=== PATIENT | female | born 1955 | race Caucasian/White ===

== ENCOUNTER 2016-04-16 11:02 | Emergency (ER) | payer OTHER ==
[~2016-04-16] VITALS: Ht 154.9 cm; Wt 94.1 kg
[~2016-04-16 11:02] MED LIST: ACETAMINOPHEN-1 EAC4 PO; ACIPHEX20 MG PO; ACTOS15 MG PO; ADULT LOW DOSE81 M1 PO; ADVAIR 250/501 DISK IH; ALBUTEROL; ALBUTEROL SULF8.5 GM IH; ALBUTEROL17 GM IH; ALL DAY ALLERGY10 M3 PO; AMITRIPTYLINE H25 MG PO; AMLODIPINE BESYL5 MG PO; AMOX TR-K CLV1 EAC4 PO; ASPERDRINK81 MG PO; ASPIR 8181 M1 PO; ASPIR-LOW81 MG PO; ATARAX,VISTARIL25 MG PO; ATENOLOL25 M1 PO; ATORVASTATIN CA20 MG PO; ATROVENT 00.5 MG/2.5 IH; ATROVENT H200 INHALA IH; AUGMENTIN875 MG PO; AVELOX400 MG PO; AZITHROMYCIN250 MG PO; AZITHROMYCIN250 MG1 PO; Antivert PO; Aspirin E.C. PO; Atrovent HFA Inhaler IH; BACTRIM,SEPT1 TABLET PO; BACTROBAN OINTM22 GM TP; BENTYL10 MG PO; BENTYL20 MG PO; BENZONATATE100 MG PO; BENZONATATE200 MG PO; BROMIDE; BUDEPRION SR150 MG PO; BUPROPION HCL150 M2 PO; CALCIUM + D 601 EACH PO; CALCIUM 600 +1 EACH PO; CALCIUM PO; CARAFATE100 MG/ML PO; CARDIZEM CD,CA120 MG PO; CARDIZEM CD,CA240 M1 PO; CARDIZEM CD,CA240 MG PO; CARTIA XT120 MG PO; CARTIA XT240 MG PO; CELEXA20 MG PO; CITALOPRAM HBR20 MG PO; CLEOCIN300 MG PO; CLINDAMYCIN HC300 MG PO; CLONAZEPAM0.5 M1 PO; CLONAZEPAM0.5 MG PO; CLONIDINE HCL0.1 MG PO; COL-RITE100 M1 PO; COLACE100 MG PO; COMBIVENT200 INHALA IH; CORTIZONE-10 PL57 GM TP; COUMADIN5 MG PO; COZAAR100 MG PO; CYANOCOBALAM1000 MCG PO; CYMBALTA30 MG PO; CYMBALTA60 MG PO; Cardizem CD,Cartia X PO; Cardizem CD,Cartia XT,Tiazac PO; Colace PO; Cymbalta PO; DELTASONE10 MG PO; DEXILANT60 MG PO; DIABETA5 MG PO; DILT-CD120 MG PO; DILTIAZEM 24HR240 MG PO; DIOVAN HCT 31 TABLE1 PO; DIOVAN320 MG PO; DOXEPIN HCL10 MG PO; DOXYCYCLINE HY100 MG PO; DUONEB 2.5-0.5 M3 ML AEROSOL; DUONEB 2.5-0.5 M3 ML IH; DUONEB3 ML IH; DYAZIDE, MA1 CAPSULE PO; Dulcolax PR; Dulera 200 mcg/5 mcg IH; DuoNeb IH; ENDOCET 7.5-321 EACH PO; Effexor XR PO; Elavil PO; FIORICET 50-301 EACH PO; FLEXERIL10 MG PO; FLONASE16 G1 BOTH NARES; FLOVENT DISKUS1 DIS2 IH; FOSAMAX70 MG PO; FUROSEMIDE20 MG PO; Flexeril PO; Flonase BOTH NARES; Fosamax PO; GABAPENTIN300 MG PO; GABAPENTIN600 MG PO; GLIPIZIDE XL10 MG PO; GLIPIZIDE10 MG PO; GLUCAGEN1 MG IM/SC; GLUCOTROL XL10 MG PO; GLUCOTROL10 MG PO; GLYBURIDE5 MG PO; Glucotrol XL PO; HYCODAN SYRUP480 ML PO; HYDROCHLOROTHIA25 MG; HYDROCHLOROTHIA25 MG PO; Hydrodiuril,Oretic,E PO; INDERIDE 40/1 TABLET PO; INTAL IH; INVanz IV; IPRATR-ALBUTEROL3 ML IH; IPRATROPIU0.2 MG/1 M IH; JANUVIA100 MG; JANUVIA100 MG PO; JANUVIA25 MG PO; K-PHOS ORIGINA500 M1 PO; KEFLEX500 MG PO; KLONOPIN0.5 M1 PO; KlonoPIN PO; Klonopin PO; LANTUS 10100 UNITS/ SC; LANTUS 3 M100 UNITS/ SC; LANTUS 3 M100 UNITS1 SC; LASIX20 MG PO; LASIX40 MG PO; LEVAQUIN250 MG PO; LEVAQUIN750 MG PO; LEVEMIR FL100 UNIT/1 SC; LEVEMIR FL100 UNITS/ SC; LEVEMIR100 UNIT/2 SC; LIDOCAINE700 MG TD; LIDODERM 5% P1 PATCH TD; LISINOPRIL20 MG PO; LO-DOSE ASPIRIN81 M1 PO; LOPRESSOR25 MG PO; LOSARTAN POTAS100 MG PO; LOVENOX40 MG/0.4 SC; LOW DOSE ASPIRI81 M1 PO; LOW DOSE ASPIRI81 M2 PO; LYRICA50 MG PO; Lasix PO; Levaquin PO; MAGNESIUM OXID400 MG PO; MAGNESIUM PO; MEDROL DOSEPAK4 MG PO; METAXALONE800 MG PO; METFORMIN HCL500 M1 PO; METOCLOPRAMIDE H5 MG PO; MICROZIDE12.5 M1 PO; MIRALAX255 GM PO; MOBIC15 MG PO; MOBIC7.5 MG PO; MONTELUKAST SOD10 MG PO; MUSCLE RUB CREA85 GM TP; MYCOSTATIN5 ML PO; Miralax, Glycolax PO; NEURONTIN300 MG PO; NEURONTIN600 MG PO; NEXIUM40 MG PO; NITROSTAT0.4 MG SL; NORCO 5/3251 TABLET PO; NORTRIPTYLINE H25 MG PO; NORVASC5 MG PO; NOVOLOG 10100 UNITS/ SC; NOVOLOG PE100 UNITS/ SC; OMEPRAZOLE40 M1 PO; OXECTA5 MG PO; OXYCODONE HCL10 MG PO; OXYCODONE HCL15 MG PO; OXYCODONE HCL5 M1 PO; OXYCODONE HCL5 MG PO; OXYCODONE-APAP1 EACH PO; PATANASE30.5 GM BOTH NARES; PATANASE30.5 GM NS; PERCOCET 5/31 TABLET PO; PHENERGAN W/ COD1 ML PO; PHENERGAN12.5 M1 PO; PIOGLITAZONE HC15 MG PO; POTASSIUM PO; POTASSIUM-9999 MG PO; PRAVACHOL10 MG PO; PRAVACHOL80 MG PO; PRAVASTATIN SOD80 MG PO; PREDNISONE; PREDNISONE PO; PREDNISONE10 M2 PO; PREDNISONE10 MG; PREDNISONE10 MG PO; PREDNISONE20 MG PO; PREDNISONE5 M1 PO; PREDNISONE5 MG PO; PREDNISONE50 MG PO; PRILOSEC20 MG PO; PRILOSEC40 MG PO; PROAIR HFA8.5 GM IH; PROMETHAZINE HC50 M1 PO; PROTONIX40 MG PO; PROVENTIL HFA6.7 GM IH; PROVENTIL,2.5 MG/0.5 IH; PROVENTIL,2.5 MG/3 M IH; PROZAC20 M1 PO; PROZAC20 MG PO; PROZAC40 MG PO; Protonix PO; Proventil,Ventolin H IH; RANITIDINE HCL150 M1 PO; REQUIP XL4 MG PO; REQUIP2 MG PO; REQUIP4 MG PO; REQUIP5 MG PO; RESUME HOME MEDS; ROBITUSSIN AC,T10 ML PO; ROPINIROLE HCL4 MG PO; ROPINIROLE HCL5 MG PO; RYBIX ODT50 MG PO; Requip PO; Robitussin AC,Tussi- PO; SERTRALINE HCL25 MG PO; SINEQUAN10 MG PO; SINGULAIR10 MG PO; SKELAXIN800 MG PO; SPIRIVA RESPIMAT4 GM IH; SPIRIVA1 INHALATI IH; STOOL SOFTENER100 M1 PO; STOOL SOFTENER100 MG PO; SYMBICORT60 INHALA1 IH; SYMBICORT60 INHALAT IH; Singulair PO; Skelaxin PO; Symbicort 160-4.5 mc IH; Symbicort 80-4.5 mcg IH; TESSALON PERLE100 MG PO; TESSALON200 MG PO; THEO-DUR,THEOC200 MG PO; TOBRAMYCIN SULFA5 ML RIGHT EYE; TOPAMAX100 MG PO; TOPAMAX25 MG PO; TOPAMAX50 MG PO; TOPIRAMATE25 MG PO; TOPIRAMATE50 MG PO; TRAMADOL HCL50 MG PO; TRULICITY0.75 MG/0. SC; TYLENOL EXTRA500 MG PO; TYLENOL REGULA325 MG PO; Tenormin PO; Tessalon Perle PO; Topamax PO; ULTRAM50 MG PO; VALACYCLOVIR1000 MG; VENTOLIN HFA18 GM IH; VERAMYST10 GM BOTH NARES; VERAMYST10 GM NS; VIBRAMYCIN100 MG PO; VICODIN 5-3001 EACH PO; VITAMIN B PO; VITAMIN B-12250 MCG PO; WARFARIN SODIUM4 MG PO; WELLBUTRIN SR100 MG PO; WELLBUTRIN SR150 MG PO; WESTCORT15 G1 TP; XANAX0.5 MG PO; XARELTO15 MG PO; XARELTO20 MG PO; Xopenex IH; ZESTRIL,PRINIVI40 M1 PO; ZESTRIL40 M1 PO; ZITHROMAX Z-PA250 MG PO; ZOFRAN ODT4 MG PO; ZOFRAN ODT8 MG PO; ZOFRAN4 MG PO; ZYRTEC10 M1 PO; ZYRTEC10 M2 PO; ZYRTEC10 M3 PO; [UNRECOGNIZED DRUG - CODE]; [UNRECOGNIZED DRUG - CODE] IH; celeXA PO; oxyCODONE PO; predniSONE PO
[2016-04-16] MEDS ORDERED: TESSALON PERLE100 MG PO (14:35)
[2016-04-16] MEDS ORDERED: PREDNISONE20 MG PO (14:35)
[2016-04-16 14:44] VITALS: BP 120/86
== END 2016-04-16 14:50 | disposition home or self-care (01) ==
LOC: RME 11:02 → EME 11:02 → RME 14:50
DX: J40 Bronchitis, not specified as acute or chronic (principal); J44.9 Chronic obstructive pulmonary disease, unspecified; J43.9 Emphysema, unspecified; I10 Essential (primary) hypertension; E78.5 Hyperlipidemia, unspecified; E11.9 Type 2 diabetes mellitus without complications; M79.7 Fibromyalgia; I25.10 Atherosclerotic heart disease of native coronary artery without angina pectoris; Z79.4 Long term (current) use of insulin; Z87.891 Personal history of nicotine dependence; Z88.1 Allergy status to other antibiotic agents; Z88.6 Allergy status to analgesic agent; Z88.7 Allergy status to serum and vaccine; Z88.8 Allergy status to other drugs, medicaments and biological substances
CPT/HCPCS: 71020; 94640; 99281; 99284; J7512

== ENCOUNTER 2016-04-19 10:28 | Emergency (ER) | payer OTHER ==
[~2016-04-19] VITALS: Ht 154.9 cm; Wt 95.6 kg
[2016-04-19] MEDS ORDERED: AUGMENTIN875 MG PO (13:05)
[2016-04-19] MEDS ORDERED: ROBITUSSIN100 MG/5 M PO (13:05)
[2016-04-19] MEDS ORDERED: PREDNISONE10 MG PO (13:06)
[2016-04-19] MEDS ORDERED: DELTASONE20 M1 PO (13:07)
[2016-04-19] MEDS ORDERED: PREDNISONE50 MG PO (13:10)
[2016-04-19 14:05] VITALS: BP 164/91
== END 2016-04-19 14:07 | disposition home or self-care (01) ==
LOC: EME 10:28
DX: J44.0 Chronic obstructive pulmonary disease with (acute) lower respiratory infection (principal); J20.9 Acute bronchitis, unspecified; E11.9 Type 2 diabetes mellitus without complications; M79.7 Fibromyalgia; E78.5 Hyperlipidemia, unspecified; I10 Essential (primary) hypertension; K21.9 Gastro-esophageal reflux disease without esophagitis; I25.10 Atherosclerotic heart disease of native coronary artery without angina pectoris; G89.29 Other chronic pain; Z86.718 Personal history of other venous thrombosis and embolism; Z86.711 Personal history of pulmonary embolism; Z87.891 Personal history of nicotine dependence
CPT/HCPCS: 71020; 93005; 94640; 99281; 99284; J7512

== ENCOUNTER 2016-04-29 07:55 | Emergency (ER) | payer OTHER ==
[~2016-04-29] VITALS: Ht 154.9 cm; Wt 96.3 kg
[~2016-04-29 07:55] MED LIST changes: +DELTASONE20 M1 PO; +ROBITUSSIN100 MG/5 M PO
[2016-04-29 08:45] LABS: ADD MIUA? YES; BILIRUBIN NEGATIVE; BLOOD TRACE; COLOR YELLOW ((YELLOW)); GLUCOSE (STRIP) NEGATIVE; KETONES NEGATIVE; LEUKOCYTES SMALL; NITRITE NEGATIVE; PH, URINE 6.5 (5-8); PROTEIN (STRIP) NEGATIVE; SPECIFIC GRAVITY 1.016 (1.000-1.030); UROBILINOGEN 0.2 MG/DL (0.2-1.0)
[2016-04-29 09:03] LABS: BACTERIA NONE SEEN; CASTS NONE SEEN /LPF; CRYSTALS NONE SEEN; EPITHELIAL CELLS 1+; MUCUS NONE SEEN; UBAC NUMBER 794.5; UEPI NUMBER 23.8; URBC NUMBER 26.1; WHITE BLOOD CELLS 0-5 /HPF (0-5)
[2016-04-29 10:24] VITALS: BP 126/77
== END 2016-04-29 10:25 | disposition home or self-care (01) ==
LOC: EME 07:55 → EXP 07:55
PROVIDERS: Physician Assistant
DX: J20.9 Acute bronchitis, unspecified (principal); R19.7 Diarrhea, unspecified; J45.909 Unspecified asthma, uncomplicated; J44.9 Chronic obstructive pulmonary disease, unspecified; K21.9 Gastro-esophageal reflux disease without esophagitis; E78.5 Hyperlipidemia, unspecified; I10 Essential (primary) hypertension; M79.7 Fibromyalgia; Z86.73 Personal history of transient ischemic attack (TIA), and cerebral infarction without residual deficits; Z96.652 Presence of left artificial knee joint; Z86.711 Personal history of pulmonary embolism; Z86.718 Personal history of other venous thrombosis and embolism; Z79.891 Long term (current) use of opiate analgesic; Z87.891 Personal history of nicotine dependence
CPT/HCPCS: 81003; 94640; 99281; 99284; J1100

== ENCOUNTER 2016-05-10 16:06 | Emergency (ER) | payer OTHER ==
[~2016-05-10] VITALS: Ht 152.4 cm; Wt 98.0 kg
[2016-05-10 16:45] LABS: ADD MIUA? NO; BILIRUBIN NEGATIVE; BLOOD NEGATIVE; COLOR YELLOW ((YELLOW)); GLUCOSE (STRIP) NEGATIVE; KETONES NEGATIVE; LEUKOCYTES NEGATIVE; NITRITE NEGATIVE; PH, URINE 6.5 (5-8); PROTEIN (STRIP) NEGATIVE; SPECIFIC GRAVITY 1.022 (1.000-1.030); UCUL ADDED? NO; UROBILINOGEN 0.2 MG/DL (0.2-1.0)
[2016-05-10 17:09] LABS: MCH 27.9 PG (29.0-34.0); MCHC 33.7 G/DL (30.0-36.0); MCV 82.8 FL (83-99); MEAN PLAT.VOLUME 10.2 uM^3 (9.5-12.4); PLATELET COUNT 234 K/uL (156-360); RBC DIS.WIDTH-CV 14.1 % (11.8-14.6); RBC DIS.WIDTH-SD 41.8 % (39-53); RED BLOOD COUNT 4.95 M/uL (3.80-5.20); WHITE BLOOD COUNT 6.9 K/uL (4.1-10.2)
[2016-05-10 17:18] LABS: CHLORIDE 104 mEq/L (99-109); POTASSIUM 4.5 mEq/L (3.7-5.4); SODIUM 141 mEq/L (136-147)
[2016-05-10 17:20] LABS: GLUCOSE 114 mg/dL (70-99)
[2016-05-10 17:21] LABS: ANION GAP 12 MEQ/L (2-14)
[2016-05-10 17:22] LABS: TOTAL BILIRUBIN 0.5 mg/dL (0.0-1.0)
[2016-05-10 17:23] LABS: ALKALINE PHOSPHATASE 122 IU/L (3-129)
[2016-05-10 17:24] LABS: GFR ESTIMATE (CALCULATED) > 59 mL/min/
[2016-05-10 17:25] LABS: UREA NITROGEN (BUN) 15 mg/dL (9-23)
[2016-05-10] MEDS ORDERED: LIDODERM 5% P1 PATCH TD (17:30)
[2016-05-10 18:11] VITALS: BP 148/83
== END 2016-05-10 18:12 | disposition home or self-care (01) ==
LOC: RME 16:06 → EME 16:06 → RME 18:12
DX: S39.012A Strain of muscle, fascia and tendon of lower back, initial encounter (principal); E11.9 Type 2 diabetes mellitus without complications; E78.5 Hyperlipidemia, unspecified; I10 Essential (primary) hypertension; Z86.73 Personal history of transient ischemic attack (TIA), and cerebral infarction without residual deficits; Z86.718 Personal history of other venous thrombosis and embolism; Z96.652 Presence of left artificial knee joint; Z88.1 Allergy status to other antibiotic agents; Z88.6 Allergy status to analgesic agent; Z88.7 Allergy status to serum and vaccine
CPT/HCPCS: 80053; 81003; 85027; 99281; 99284

== ENCOUNTER 2016-05-22 11:05 | Emergency (ER) | payer OTHER ==
[~2016-05-22] VITALS: Ht 154.9 cm; Wt 96.1 kg
[2016-05-22 11:46] LABS: HEMATOCRIT 43.5 % (36.0-46.0); MCH 27.8 PG (29.0-34.0); MCV 81.6 FL (83-99); MEAN PLAT.VOLUME 9.9 uM^3 (9.5-12.4); PLATELET COUNT 250 K/uL (156-360); RBC DIS.WIDTH-CV 14.5 % (11.8-14.6); RBC DIS.WIDTH-SD 42.7 % (39-53); RED BLOOD COUNT 5.33 M/uL (3.80-5.20); WHITE BLOOD COUNT 5.3 K/uL (4.1-10.2)
[2016-05-22 12:00] LABS: CHLORIDE 109 mEq/L (99-109); POTASSIUM 3.7 mEq/L (3.7-5.4); SODIUM 143 mEq/L (136-147)
[2016-05-22 12:02] LABS: GLUCOSE 165 mg/dL (70-99)
[2016-05-22 12:04] LABS: ANION GAP 11 MEQ/L (2-14); TOTAL BILIRUBIN 0.3 mg/dL (0.0-1.0)
[2016-05-22 12:06] LABS: ALKALINE PHOSPHATASE 138 IU/L (3-129); GFR ESTIMATE (CALCULATED) 54 mL/min/
[2016-05-22 12:07] LABS: UREA NITROGEN (BUN) 14 mg/dL (9-23)
[2016-05-22 13:43] LABS: ADD MIUA? YES; BILIRUBIN SMALL; BLOOD NEGATIVE; COLOR AMBER ((YELLOW)); GLUCOSE (STRIP) NEGATIVE; KETONES 5; LEUKOCYTES TRACE; NITRITE NEGATIVE; PROTEIN (STRIP) 100; SPECIFIC GRAVITY 1.038 (1.000-1.030); UROBILINOGEN 0.2 MG/DL (0.2-1.0)
[2016-05-22 13:44] LABS: BACTERIA NONE SEEN /HPF; CRYSTALS PRESENT; EPITHELIAL CELLS NONE SEEN /HPF; MUCUS NONE SEEN /LPF; RED BLOOD CELLS NONE SEEN /HPF (0-5); UCUL ADDED? NO; WHITE BLOOD CELLS NONE SEEN /HPF (0-5)
[2016-05-22 13:49] LABS: CALCIUM OXALATE CRYSTALS 4+ /HPF
[2016-05-22 13:50] LABS: CASTS PRESENT /LPF; HYALINE CASTS 0-5 /LPF
[2016-05-22 14:15] LABS: INFLUENZA A VIRAL ANTIGEN NEGATIVE; INFLUENZA B VIRAL ANTIGEN NEGATIVE
[2016-05-22 16:15] VITALS: BP 170/106
== END 2016-05-22 16:16 | disposition home or self-care (01) ==
LOC: EME 11:05
PROVIDERS: Physician Assistant
DX: R11.2 Nausea with vomiting, unspecified (principal); R19.7 Diarrhea, unspecified; E11.9 Type 2 diabetes mellitus without complications; J44.9 Chronic obstructive pulmonary disease, unspecified; E78.5 Hyperlipidemia, unspecified; I10 Essential (primary) hypertension; K21.9 Gastro-esophageal reflux disease without esophagitis; Z86.73 Personal history of transient ischemic attack (TIA), and cerebral infarction without residual deficits; Z86.718 Personal history of other venous thrombosis and embolism; Z86.711 Personal history of pulmonary embolism; G89.29 Other chronic pain; Z79.891 Long term (current) use of opiate analgesic; Z87.891 Personal history of nicotine dependence
CPT/HCPCS: 74020; 80053; 81003; 85027; 87502; 99281; 99283; J2405; J7030

== ENCOUNTER 2016-06-25 21:56 | Emergency (ER) | payer OTHER ==
[~2016-06-25] VITALS: Ht 154.9 cm; Wt 94.8 kg
[2016-06-25 22:44] LABS: HEMATOCRIT 43.5 % (36.0-46.0); MCH 27.8 PG (29.0-34.0); MCHC 32.9 G/DL (30.0-36.0); MCV 84.5 FL (83-99); MEAN PLAT.VOLUME 10.6 uM^3 (9.5-12.4); PLATELET COUNT 206 K/uL (156-360); RBC DIS.WIDTH-CV 13.8 % (11.8-14.6); RED BLOOD COUNT 5.15 M/uL (3.80-5.20); WHITE BLOOD COUNT 6.1 K/uL (4.1-10.2)
[2016-06-25 22:57] LABS: CHLORIDE 105 mEq/L (99-109); POTASSIUM 3.6 mEq/L (3.7-5.4); SODIUM 141 mEq/L (136-147)
[2016-06-25 22:59] LABS: GLUCOSE 109 mg/dL (70-99)
[2016-06-25 23:01] LABS: ANION GAP 8 MEQ/L (2-14); TOTAL BILIRUBIN 0.7 mg/dL (0.0-1.0)
[2016-06-25 23:03] LABS: ALKALINE PHOSPHATASE 130 IU/L (3-129); GFR ESTIMATE (CALCULATED) > 59 mL/min/
[2016-06-25 23:04] LABS: UREA NITROGEN (BUN) 13 mg/dL (9-23)
[2016-06-25 23:06] LABS: LIPASE 48 U/L (1.0-51.0)
[2016-06-26 01:54] LABS: ADD MIUA? YES; BILIRUBIN NEGATIVE; BLOOD SMALL; COLOR YELLOW ((YELLOW)); GLUCOSE (STRIP) NEGATIVE; KETONES NEGATIVE; LEUKOCYTES NEGATIVE; NITRITE NEGATIVE; PROTEIN (STRIP) NEGATIVE
[2016-06-26 01:59] LABS: BACTERIA NONE SEEN /HPF; EPITHELIAL CELLS RARE /HPF; MUCUS TRACE /LPF; RED BLOOD CELLS 0-5 /HPF (0-5); UCUL ADDED? NO; WHITE BLOOD CELLS 0-5 /HPF (0-5)
[2016-06-26 02:09] LABS: SPECIFIC GRAVITY 1.085 (1.000-1.030)
[2016-06-26] MEDS ORDERED: BENTYL20 MG PO (02:13)
[2016-06-26] MEDS ORDERED: ZOFRAN ODT4 MG PO (02:13)
[2016-06-26 02:36] VITALS: BP 170/89
== END 2016-06-26 02:41 | disposition home or self-care (01) ==
LOC: EME 21:56
DX: R10.30 Lower abdominal pain, unspecified (principal); R11.2 Nausea with vomiting, unspecified; R19.7 Diarrhea, unspecified; I25.10 Atherosclerotic heart disease of native coronary artery without angina pectoris; Z86.73 Personal history of transient ischemic attack (TIA), and cerebral infarction without residual deficits; J45.909 Unspecified asthma, uncomplicated; J44.9 Chronic obstructive pulmonary disease, unspecified; G89.29 Other chronic pain; E11.9 Type 2 diabetes mellitus without complications; M79.7 Fibromyalgia; E78.5 Hyperlipidemia, unspecified; I10 Essential (primary) hypertension; K21.9 Gastro-esophageal reflux disease without esophagitis; Z86.718 Personal history of other venous thrombosis and embolism; Z86.711 Personal history of pulmonary embolism; Z87.891 Personal history of nicotine dependence
CPT/HCPCS: 74177; 80053; 81003; 83690; 85027; 99281; 99285; J0500; J2270; J2405; J7030

== ENCOUNTER 2016-07-01 18:38 | Emergency (ER) | payer OTHER ==
[~2016-07-01] VITALS: Ht 154.9 cm; Wt 94.5 kg
[2016-07-01 22:42] VITALS: BP 153/114
[2016-07-02] MEDS ORDERED: ZOFRAN ODT4 MG PO (18:14)
== END 2016-07-01 22:43 | disposition home or self-care (01) ==
LOC: EME 18:38
DX: M71.22 Synovial cyst of popliteal space [Baker], left knee (principal); Z96.652 Presence of left artificial knee joint
CPT/HCPCS: 93971; 99281; 99283

== ENCOUNTER 2016-07-02 14:18 | Emergency (ER) | payer OTHER ==
[~2016-07-02] VITALS: Ht 154.9 cm; Wt 88.6 kg
[2016-07-02 14:58] LABS: HEMATOCRIT 40.2 % (36.0-46.0); MCHC 32.8 G/DL (30.0-36.0); MCV 85.4 FL (83-99); MEAN PLAT.VOLUME 10.4 uM^3 (9.5-12.4); PLATELET COUNT 227 K/uL (156-360); RBC DIS.WIDTH-SD 43.5 % (39-53); RED BLOOD COUNT 4.71 M/uL (3.80-5.20); WHITE BLOOD COUNT 6.1 K/uL (4.1-10.2)
[2016-07-02 15:09] LABS: CHLORIDE 106 mEq/L (99-109); POTASSIUM 4.2 mEq/L (3.7-5.4); SODIUM 140 mEq/L (136-147)
[2016-07-02 15:11] LABS: GLUCOSE 137 mg/dL (70-99)
[2016-07-02 15:12] LABS: ANION GAP 7 MEQ/L (2-14)
[2016-07-02 15:14] LABS: ALKALINE PHOSPHATASE 149 IU/L (3-129)
[2016-07-02 15:15] LABS: GFR ESTIMATE (CALCULATED) > 59 mL/min/
[2016-07-02 15:16] LABS: UREA NITROGEN (BUN) 14 mg/dL (9-23)
[2016-07-02 15:18] LABS: LIPASE 65 U/L (1.0-51.0)
[2016-07-02 15:26] LABS: TOTAL BILIRUBIN 0.4 mg/dL (0.0-1.0)
[2016-07-02 16:38] LABS: AMYLASE 33 IU/L (1-118)
[2016-07-02 17:22] LABS: ADD MIUA? YES; BILIRUBIN NEGATIVE; BLOOD NEGATIVE; COLOR YELLOW ((YELLOW)); GLUCOSE (STRIP) NEGATIVE; KETONES NEGATIVE; LEUKOCYTES TRACE; NITRITE NEGATIVE; PROTEIN (STRIP) NEGATIVE; SPECIFIC GRAVITY 1.025 (1.000-1.030); UROBILINOGEN 0.2 MG/DL (0.2-1.0)
[2016-07-02 17:34] LABS: BACTERIA RARE /HPF; CALCIUM OXALATE CRYSTALS 4+ /HPF; EPITHELIAL CELLS 1+ /HPF; HYALINE CASTS 0-5 /LPF; MUCUS NONE SEEN /LPF; UCUL ADDED? NO; UNCLASSIFIED CRYSTALS 3+ /HPF
[2016-07-02] MEDS ORDERED: ZOFRAN ODT4 MG PO (18:14)
[2016-07-02 19:14] VITALS: BP 172/87
== END 2016-07-02 19:15 | disposition home or self-care (01) ==
LOC: EME 14:18
DX: R10.10 Upper abdominal pain, unspecified (principal); E11.9 Type 2 diabetes mellitus without complications; E78.5 Hyperlipidemia, unspecified; I10 Essential (primary) hypertension; Z86.73 Personal history of transient ischemic attack (TIA), and cerebral infarction without residual deficits; Z88.1 Allergy status to other antibiotic agents; Z88.6 Allergy status to analgesic agent; Z88.7 Allergy status to serum and vaccine
CPT/HCPCS: 80053; 81003; 82150; 83690; 85027; 99281; 99284; J1200; J1885; J2405; J2930; J7030

== ENCOUNTER 2016-07-05 11:03 | Emergency (ER) | payer OTHER ==
[~2016-07-05] VITALS: Ht 154.9 cm; Wt 96.0 kg
[2016-07-05 12:42] VITALS: BP 166/86
== END 2016-07-05 12:43 | disposition home or self-care (01) ==
LOC: EME 11:03
PROC: 2W38X1Z Immobilization of Right Upper Extremity using Splint (ICD-10-PCS; principal; 2016-07-05)
DX: S60.221A Contusion of right hand, initial encounter (principal); Z87.891 Personal history of nicotine dependence; Z88.1 Allergy status to other antibiotic agents; Z88.6 Allergy status to analgesic agent; Z88.7 Allergy status to serum and vaccine; Z88.8 Allergy status to other drugs, medicaments and biological substances; W01.0XXA Fall on same level from slipping, tripping and stumbling without subsequent striking against object, initial encounter; Y92.480 Sidewalk as the place of occurrence of the external cause; Y93.01 Activity, walking, marching and hiking
CPT/HCPCS: 73110; 87651 90; 99281; 99284

== ENCOUNTER 2016-07-06 07:49 | Emergency (ER) | payer OTHER ==
[~2016-07-06] VITALS: Ht 154.9 cm; Wt 96.0 kg
[2016-07-06 07:53] VITALS: BP 156/95
== END 2016-07-06 08:44 | disposition home or self-care (01) ==
LOC: EME 07:49
DX: S93.401A Sprain of unspecified ligament of right ankle, initial encounter (principal); X50.1XXA Overexertion from prolonged static or awkward postures, initial encounter; Y93.41 Activity, dancing; E11.9 Type 2 diabetes mellitus without complications; Z79.01 Long term (current) use of anticoagulants; Z79.891 Long term (current) use of opiate analgesic; Z87.891 Personal history of nicotine dependence
CPT/HCPCS: 73610; 99281; 99283

== ENCOUNTER 2016-07-16 18:08 | Emergency (ER) | payer OTHER ==
[~2016-07-16] VITALS: Ht 154.9 cm; Wt 93.1 kg
[2016-07-16 18:21] VITALS: BP 185/124
== END 2016-07-16 21:48 | disposition home or self-care (01) ==
LOC: EME 18:08
DX: S93.401A Sprain of unspecified ligament of right ankle, initial encounter (principal); W19.XXXA Unspecified fall, initial encounter; K13.70 Unspecified lesions of oral mucosa; Z79.01 Long term (current) use of anticoagulants; Z79.891 Long term (current) use of opiate analgesic; Z87.891 Personal history of nicotine dependence
CPT/HCPCS: 99281; 99283

== ENCOUNTER 2016-07-20 20:28 | Emergency (ER) | payer OTHER ==
[~2016-07-20] VITALS: Ht 154.9 cm; Wt 96.3 kg
[2016-07-20 20:32] VITALS: BP 204/98
== END 2016-07-20 20:54 | disposition home or self-care (01) ==
LOC: EME 20:28
DX: K14.0 Glossitis (principal); I10 Essential (primary) hypertension
CPT/HCPCS: 99281; 99283

== ENCOUNTER 2016-09-26 09:51 | Emergency (ER) | payer OTHER ==
[~2016-09-26] VITALS: Ht 154.9 cm; Wt 94.7 kg
[2016-09-26 10:56] LABS: HEMATOCRIT 39.8 % (36.0-46.0); MCH 28.5 PG (29.0-34.0); MCHC 33.9 G/DL (30.0-36.0); MCV 84.1 FL (83-99); MEAN PLAT.VOLUME 10.5 uM^3 (9.5-12.4); PLATELET COUNT 206 K/uL (156-360); RBC DIS.WIDTH-CV 13.2 % (11.8-14.6); RBC DIS.WIDTH-SD 40.6 % (39-53); RED BLOOD COUNT 4.73 M/uL (3.80-5.20); WHITE BLOOD COUNT 5.1 K/uL (4.1-10.2)
[2016-09-26 11:13] LABS: CHLORIDE 108 mEq/L (99-109); SODIUM 141 mEq/L (136-147)
[2016-09-26 11:14] LABS: GLUCOSE 131 mg/dL (70-99)
[2016-09-26 11:16] LABS: ANION GAP 8 MEQ/L (2-14)
[2016-09-26 11:18] LABS: GFR ESTIMATE (CALCULATED) > 59 mL/min/
[2016-09-26 11:19] LABS: UREA NITROGEN (BUN) 12 mg/dL (9-23)
[2016-09-26] MEDS ORDERED: PREDNISONE50 MG PO (12:48)
[2016-09-26] MEDS ORDERED: ZITHROMAX Z-PA250 MG PO (12:48)
[2016-09-26 13:00] VITALS: BP 157/116
== END 2016-09-26 13:21 | disposition home or self-care (01) ==
LOC: EME 09:51
DX: J44.1 Chronic obstructive pulmonary disease with (acute) exacerbation (principal); J40 Bronchitis, not specified as acute or chronic; R19.7 Diarrhea, unspecified; R51 Headache; Z86.711 Personal history of pulmonary embolism; Z86.718 Personal history of other venous thrombosis and embolism; Z79.01 Long term (current) use of anticoagulants; E11.9 Type 2 diabetes mellitus without complications; E78.5 Hyperlipidemia, unspecified; Z96.652 Presence of left artificial knee joint; Z87.891 Personal history of nicotine dependence
CPT/HCPCS: 71020; 80048; 85027; 94640; 99281; 99284; J7512

== ENCOUNTER 2016-10-01 19:32 | Emergency (ER) | payer OTHER ==
[~2016-10-01] VITALS: Ht 154.9 cm; Wt 93.2 kg
[2016-10-01 20:00] LABS: HEMATOCRIT 39.3 % (36.0-46.0); MCH 28.2 PG (29.0-34.0); MCHC 33.3 G/DL (30.0-36.0); MCV 84.7 FL (83-99); MEAN PLAT.VOLUME 10.5 uM^3 (9.5-12.4); PLATELET COUNT 200 K/uL (156-360); RBC DIS.WIDTH-CV 13.3 % (11.8-14.6); RBC DIS.WIDTH-SD 41.2 % (39-53); RED BLOOD COUNT 4.64 M/uL (3.80-5.20); WHITE BLOOD COUNT 7.6 K/uL (4.1-10.2)
[2016-10-01 20:20] LABS: CHLORIDE 108 mEq/L (99-109); POTASSIUM 3.4 mEq/L (3.7-5.4); SODIUM 141 mEq/L (136-147)
[2016-10-01 20:22] LABS: GLUCOSE 149 mg/dL (70-99)
[2016-10-01 20:23] LABS: ANION GAP 10 MEQ/L (2-14)
[2016-10-01 20:25] LABS: GFR ESTIMATE (CALCULATED) > 59 mL/min/
[2016-10-01 20:26] LABS: UREA NITROGEN (BUN) 13 mg/dL (9-23)
[2016-10-01] MEDS ORDERED: PREDNISONE50 MG PO (21:01)
[2016-10-01] MEDS ORDERED: ROBITUSSIN AC,T10 ML PO (21:01)
[2016-10-01] MEDS ORDERED: LEVAQUIN750 MG PO (21:01)
[2016-10-01 21:17] VITALS: BP 165/89
[2016-10-02] MEDS ORDERED: MICONAZOLE NITR30 GM TP (14:20)
[2016-10-02] MEDS ORDERED: CLOTRIMAZOLE10 MG PO (14:20)
== END 2016-10-01 21:19 | disposition home or self-care (01) ==
LOC: EME 19:32
DX: J44.0 Chronic obstructive pulmonary disease with (acute) lower respiratory infection (principal); J20.9 Acute bronchitis, unspecified; Z72.0 Tobacco use; Z71.6 Tobacco abuse counseling; E11.9 Type 2 diabetes mellitus without complications; E78.5 Hyperlipidemia, unspecified; I10 Essential (primary) hypertension; M79.7 Fibromyalgia; K21.9 Gastro-esophageal reflux disease without esophagitis
CPT/HCPCS: 71020; 80048; 85027; 99281; 99284

== ENCOUNTER 2016-10-02 12:49 | Emergency (ER) | payer OTHER ==
[~2016-10-02] VITALS: Ht 154.9 cm; Wt 93.0 kg
[2016-10-02] MEDS ORDERED: CLOTRIMAZOLE10 MG PO (14:20)
[2016-10-02] MEDS ORDERED: MICONAZOLE NITR30 GM TP (14:20)
[2016-10-02 14:45] VITALS: BP 144/89
== END 2016-10-02 14:45 | disposition home or self-care (01) ==
LOC: EME 12:49
DX: K13.0 Diseases of lips (principal); B37.0 Candidal stomatitis; M79.671 Pain in right foot; M79.672 Pain in left foot; J44.9 Chronic obstructive pulmonary disease, unspecified; E11.9 Type 2 diabetes mellitus without complications; Z79.01 Long term (current) use of anticoagulants; Z87.891 Personal history of nicotine dependence
CPT/HCPCS: 99281; 99282

== ENCOUNTER 2016-10-10 05:23 | Emergency (ER) | payer OTHER ==
[~2016-10-10] VITALS: Ht 154.9 cm; Wt 91.5 kg
[~2016-10-10 05:23] MED LIST changes: +CLOTRIMAZOLE10 MG PO; +MICONAZOLE NITR30 GM TP
[2016-10-10 06:44] LABS: EOSINOPHIL COUNT 0.2 K/uL (0-0.3); HEMATOCRIT 44.4 % (36.0-46.0); IMMATURE GRANULOCYTE (%) 0.3 % (0.0-0.7); INSTRUMENT ABS NEUTROPHIL CT 5.6 K/uL; LYMPHOCYTE COUNT 2.9 K/uL (1.0-2.8); MCH 28.3 PG (29.0-34.0); MCHC 33.1 G/DL (30.0-36.0); MCV 85.4 FL (83-99); MEAN PLAT.VOLUME 10.3 uM^3 (9.5-12.4); MONOCYTE (%) 5.9 % (3-12); MONOCYTE COUNT 0.6 K/uL (0-0.8); NEUTROPHIL (%) 60.4 % (45-76); NEUTROPHIL COUNT 5.6 K/uL (1.8-6.4); PLATELET COUNT 252 K/uL (156-360); RBC DIS.WIDTH-CV 13.5 % (11.8-14.6); RBC DIS.WIDTH-SD 42.4 % (39-53); WHITE BLOOD COUNT 9.3 K/uL (4.1-10.2)
[2016-10-10 07:10] LABS: ANION GAP 8 MEQ/L (2-14); CHLORIDE 107 MEQ/L (99-109); POTASSIUM 4.5 MEQ/L (3.7-5.4); SAMPLE HEMOLYSIS CHECK 0; SAMPLE ICTERIC CHECK 0; SAMPLE LIPEMIA CHECK 0; SODIUM 141 MEQ/L (136-147)
[2016-10-10 07:16] LABS: GFR ESTIMATE (CALCULATED) > 59 mL/min/; GLUCOSE 145 mg/dL (70-99); UREA NITROGEN (BUN) 23 mg/dL (9-23)
[2016-10-10 07:57] VITALS: BP 159/112
== END 2016-10-10 07:58 | disposition home or self-care (01) ==
LOC: EME 05:23
PROVIDERS: Emergency Medicine
DX: G25.81 Restless legs syndrome (principal); J44.9 Chronic obstructive pulmonary disease, unspecified; I10 Essential (primary) hypertension; E11.40 Type 2 diabetes mellitus with diabetic neuropathy, unspecified; M79.7 Fibromyalgia; F17.200 Nicotine dependence, unspecified, uncomplicated
CPT/HCPCS: 80048; 85025; 99281; 99284

== ENCOUNTER 2016-10-14 20:57 | Emergency (ER) | payer OTHER ==
[~2016-10-14] VITALS: Ht 154.9 cm; Wt 90.4 kg
[2016-10-14 21:15] VITALS: BP 164/92
== END 2016-10-14 23:20 | disposition home or self-care (01) ==
LOC: EME 20:57
DX: M25.462 Effusion, left knee (principal); S80.212A Abrasion, left knee, initial encounter; W19.XXXA Unspecified fall, initial encounter; Z96.652 Presence of left artificial knee joint; Z79.01 Long term (current) use of anticoagulants; Z87.891 Personal history of nicotine dependence
CPT/HCPCS: 73564; 99281; 99284

== ENCOUNTER 2016-10-20 19:06 | Emergency (ER) | payer OTHER ==
[~2016-10-20] VITALS: Ht 154.9 cm; Wt 90.7 kg
[2016-10-20 19:18] VITALS: BP 131/80
[2016-10-20] MEDS ORDERED: AUGMENTIN875 MG PO (21:34)
== END 2016-10-20 22:09 | disposition home or self-care (01) ==
LOC: EME 19:06 → EXP 19:06
DX: R59.0 Localized enlarged lymph nodes (principal); E11.9 Type 2 diabetes mellitus without complications; I10 Essential (primary) hypertension
CPT/HCPCS: 99281; 99284

== ENCOUNTER 2016-10-22 06:52 | Emergency (ER) | payer OTHER ==
[~2016-10-22] VITALS: Ht 154.9 cm; Wt 90.0 kg
[2016-10-22 08:05] LABS: EOSINOPHIL (%) 2.3 % (0-5); EOSINOPHIL COUNT 0.2 K/uL (0-0.3); HEMATOCRIT 40.3 % (36.0-46.0); IMMATURE GRANULOCYTE (%) 0.4 % (0.0-0.7); INSTRUMENT ABS NEUTROPHIL CT 4.1 K/uL; LYMPHOCYTE COUNT 2.8 K/uL (1.0-2.8); MCH 28.5 PG (29.0-34.0); MCV 83.8 FL (83-99); MEAN PLAT.VOLUME 10.7 uM^3 (9.5-12.4); MONOCYTE (%) 7.8 % (3-12); MONOCYTE COUNT 0.6 K/uL (0-0.8); NEUTROPHIL (%) 53.1 % (45-76); NEUTROPHIL COUNT 4.1 K/uL (1.8-6.4); PLATELET COUNT 207 K/uL (156-360); RBC DIS.WIDTH-CV 13.1 % (11.8-14.6); RBC DIS.WIDTH-SD 39.8 % (39-53); RED BLOOD COUNT 4.81 M/uL (3.80-5.20); WHITE BLOOD COUNT 7.7 K/uL (4.1-10.2)
[2016-10-22 08:45] VITALS: BP 152/86
[2016-10-22 08:49] LABS: CHLORIDE 109 mEq/L (99-109); POTASSIUM 5.1 mEq/L (3.7-5.4); SODIUM 142 mEq/L (136-147)
[2016-10-22 08:51] LABS: GLUCOSE 98 mg/dL (70-99)
[2016-10-22 08:52] LABS: ANION GAP 13 MEQ/L (2-14)
[2016-10-22 08:54] LABS: GFR ESTIMATE (CALCULATED) > 59 mL/min/
[2016-10-22 08:55] LABS: UREA NITROGEN (BUN) 17 mg/dL (9-23)
== END 2016-10-22 08:46 | disposition left against medical advice (07) ==
LOC: EME 06:52
PROVIDERS: Emergency Medicine
DX: M79.605 Pain in left leg (principal); M79.604 Pain in right leg; G25.81 Restless legs syndrome; M79.7 Fibromyalgia; E78.5 Hyperlipidemia, unspecified; J44.9 Chronic obstructive pulmonary disease, unspecified; E11.9 Type 2 diabetes mellitus without complications; I10 Essential (primary) hypertension; Z88.6 Allergy status to analgesic agent; Z87.891 Personal history of nicotine dependence; Z90.49 Acquired absence of other specified parts of digestive tract; Z79.84 Long term (current) use of oral hypoglycemic drugs
CPT/HCPCS: 80048; 85025; 99281; 99284

== ENCOUNTER 2016-11-07 19:34 | Emergency (ER) | payer OTHER ==
[~2016-11-07] VITALS: Ht 154.9 cm; Wt 91.1 kg
[2016-11-07 20:45] LABS: ADD MIUA? YES; BILIRUBIN NEGATIVE; BLOOD NEGATIVE; COLOR YELLOW ((YELLOW)); GLUCOSE (STRIP) NEGATIVE; KETONES NEGATIVE; LEUKOCYTES NEGATIVE; NITRITE NEGATIVE; PROTEIN (STRIP) NEGATIVE; SPECIFIC GRAVITY 1.027 (1.000-1.030)
[2016-11-07 20:53] LABS: HEMATOCRIT 37.5 % (36.0-46.0); MCH 29.1 PG (29.0-34.0); MCHC 34.4 G/DL (30.0-36.0); MCV 84.7 FL (83-99); MEAN PLAT.VOLUME 10.8 uM^3 (9.5-12.4); PLATELET COUNT 235 K/uL (156-360); RBC DIS.WIDTH-CV 13.2 % (11.8-14.6); RBC DIS.WIDTH-SD 40.8 % (39-53); RED BLOOD COUNT 4.43 M/uL (3.80-5.20); WHITE BLOOD COUNT 7.1 K/uL (4.1-10.2)
[2016-11-07 20:55] LABS: BACTERIA RARE /HPF; EPITHELIAL CELLS RARE /HPF; MUCUS 1+ /LPF; RED BLOOD CELLS 0-5 /HPF (0-5); UCUL ADDED? NO; WHITE BLOOD CELLS 0-5 /HPF (0-5)
[2016-11-07 21:03] LABS: CHLORIDE 111 mEq/L (99-109); POTASSIUM 3.5 mEq/L (3.7-5.4); SODIUM 144 mEq/L (136-147)
[2016-11-07 21:05] LABS: GLUCOSE 97 mg/dL (70-99)
[2016-11-07 21:06] LABS: ANION GAP 10 MEQ/L (2-14)
[2016-11-07 21:08] LABS: GFR ESTIMATE (CALCULATED) > 59 mL/min/
[2016-11-07] MEDS ORDERED: HYDROCHLOROTH12.5 M3 PO (21:08)
[2016-11-07 21:09] LABS: UREA NITROGEN (BUN) 12 mg/dL (9-23)
[2016-11-07 21:35] VITALS: BP 162/88
== END 2016-11-07 21:37 | disposition home or self-care (01) ==
LOC: EME 19:34
PROVIDERS: Physician Assistant
DX: I10 Essential (primary) hypertension (principal); G89.29 Other chronic pain; G62.9 Polyneuropathy, unspecified; E11.40 Type 2 diabetes mellitus with diabetic neuropathy, unspecified; M79.7 Fibromyalgia; K21.9 Gastro-esophageal reflux disease without esophagitis; J44.9 Chronic obstructive pulmonary disease, unspecified; I25.10 Atherosclerotic heart disease of native coronary artery without angina pectoris; E78.5 Hyperlipidemia, unspecified; K58.9 Irritable bowel syndrome, unspecified; Z86.73 Personal history of transient ischemic attack (TIA), and cerebral infarction without residual deficits; Z86.718 Personal history of other venous thrombosis and embolism; Z86.711 Personal history of pulmonary embolism; Z87.891 Personal history of nicotine dependence
CPT/HCPCS: 80048; 81003; 85027; 99281; 99283

== ENCOUNTER 2016-11-25 18:22 | Emergency (ER) | payer OTHER ==
[~2016-11-25] VITALS: Ht 154.9 cm; Wt 88.9 kg
[~2016-11-25 18:22] MED LIST changes: +HYDROCHLOROTH12.5 M3 PO
[2016-11-25 19:22] LABS: HEMATOCRIT 42.6 % (36.0-46.0); MCH 28.3 PG (29.0-34.0); MCHC 33.6 G/DL (30.0-36.0); MCV 84.4 FL (83-99); MEAN PLAT.VOLUME 10.6 uM^3 (9.5-12.4); PLATELET COUNT 234 K/uL (156-360); RBC DIS.WIDTH-CV 13.2 % (11.8-14.6); RED BLOOD COUNT 5.05 M/uL (3.80-5.20); WHITE BLOOD COUNT 8.7 K/uL (4.1-10.2)
[2016-11-25 19:30] LABS: CHLORIDE 109 mEq/L (99-109); POTASSIUM 3.9 mEq/L (3.7-5.4)
[2016-11-25 19:31] LABS: SODIUM 143 mEq/L (136-147)
[2016-11-25 19:32] LABS: GLUCOSE 132 mg/dL (70-99)
[2016-11-25 19:34] LABS: ANION GAP 12 MEQ/L (2-14)
[2016-11-25 19:36] LABS: GFR ESTIMATE (CALCULATED) > 59 mL/min/
[2016-11-25 19:37] LABS: UREA NITROGEN (BUN) 20 mg/dL (9-23)
[2016-11-25 19:44] LABS: TROP-I INTERPRETATION NEGATIVE; TROPONIN-I 0.02 ng/mL (0.0-0.30)
[2016-11-25] MEDS ORDERED: PREDNISONE50 MG PO (21:09)
[2016-11-25 21:41] VITALS: BP 141/84
== END 2016-11-25 21:42 | disposition home or self-care (01) ==
LOC: EME 18:22
DX: J44.1 Chronic obstructive pulmonary disease with (acute) exacerbation (principal); I10 Essential (primary) hypertension; E78.5 Hyperlipidemia, unspecified; E11.9 Type 2 diabetes mellitus without complications; Z79.84 Long term (current) use of oral hypoglycemic drugs; Z87.891 Personal history of nicotine dependence; Z86.73 Personal history of transient ischemic attack (TIA), and cerebral infarction without residual deficits; Z96.652 Presence of left artificial knee joint; M79.7 Fibromyalgia; Z88.6 Allergy status to analgesic agent; Z88.7 Allergy status to serum and vaccine
CPT/HCPCS: 71020; 80048; 84484; 85027; 93005; 99281; 99284; J7512

== ENCOUNTER 2016-12-07 07:38 | Emergency (ER) | payer OTHER ==
[~2016-12-07] VITALS: Ht 154.9 cm; Wt 89.5 kg
[2016-12-07] MEDS ORDERED: OXYCODONE HCL10 MG PO (11:23)
[2016-12-07] MEDS ORDERED: VALIUM5 MG PO (11:23)
[2016-12-07 12:07] VITALS: BP 140/77
== END 2016-12-07 12:10 | disposition home or self-care (01) ==
LOC: EME 07:38
DX: S29.012A Strain of muscle and tendon of back wall of thorax, initial encounter (principal); S16.1XXA Strain of muscle, fascia and tendon at neck level, initial encounter; M25.562 Pain in left knee; V49.40XA Driver injured in collision with unspecified motor vehicles in traffic accident, initial encounter; Y92.488 Other paved roadways as the place of occurrence of the external cause; J44.9 Chronic obstructive pulmonary disease, unspecified; I10 Essential (primary) hypertension; E78.5 Hyperlipidemia, unspecified; E11.9 Type 2 diabetes mellitus without complications; K21.9 Gastro-esophageal reflux disease without esophagitis; M79.7 Fibromyalgia; I25.10 Atherosclerotic heart disease of native coronary artery without angina pectoris; Z86.73 Personal history of transient ischemic attack (TIA), and cerebral infarction without residual deficits; Z86.718 Personal history of other venous thrombosis and embolism; Z86.711 Personal history of pulmonary embolism; Z87.891 Personal history of nicotine dependence
CPT/HCPCS: 72040; 72070; 72125; 72128; 73564; 93005; 99281; 99284

== ENCOUNTER 2016-12-08 10:37 | Emergency (ER) | payer OTHER ==
[~2016-12-08] VITALS: Ht 154.9 cm; Wt 91.2 kg
[~2016-12-08 10:37] MED LIST changes: +VALIUM5 MG PO
[2016-12-08 12:26] VITALS: BP 159/97
== END 2016-12-08 12:27 | disposition home or self-care (01) ==
LOC: EME 10:37
DX: S40.011A Contusion of right shoulder, initial encounter (principal); S70.02XA Contusion of left hip, initial encounter; V49.40XD Driver injured in collision with unspecified motor vehicles in traffic accident, subsequent encounter; E11.9 Type 2 diabetes mellitus without complications; Z88.1 Allergy status to other antibiotic agents; Z88.6 Allergy status to analgesic agent; Z88.7 Allergy status to serum and vaccine
CPT/HCPCS: 73030; 73502; 99281; 99283; J3010

== ENCOUNTER 2016-12-24 12:54 | Emergency (ER) | payer OTHER ==
[~2016-12-24] VITALS: Ht 154.9 cm; Wt 86.3 kg
[2016-12-24] MEDS ORDERED: PREDNISONE20 MG PO (15:45)
[2016-12-24] MEDS ORDERED: TRAMADOL HCL50 MG PO (15:45)
[2016-12-24 15:57] VITALS: BP 136/80
== END 2016-12-24 15:58 | disposition home or self-care (01) ==
LOC: EME 12:54
DX: J44.1 Chronic obstructive pulmonary disease with (acute) exacerbation (principal); M25.562 Pain in left knee; G89.29 Other chronic pain; E11.9 Type 2 diabetes mellitus without complications; E78.5 Hyperlipidemia, unspecified; I10 Essential (primary) hypertension; K21.9 Gastro-esophageal reflux disease without esophagitis; R56.9 Unspecified convulsions; Z86.73 Personal history of transient ischemic attack (TIA), and cerebral infarction without residual deficits; I25.10 Atherosclerotic heart disease of native coronary artery without angina pectoris
CPT/HCPCS: 71020; 73564; 94640; 99281; 99284; J7512

== ENCOUNTER 2016-12-26 20:18 | Emergency (ER) | payer OTHER ==
[~2016-12-26] VITALS: Ht 154.9 cm; Wt 93.7 kg
[2016-12-26 21:40] VITALS: BP 109/88
== END 2016-12-26 21:41 | disposition home or self-care (01) ==
LOC: EXP 20:18 → EME 20:18 → EXP 21:41
DX: F07.81 Postconcussional syndrome (principal); J44.9 Chronic obstructive pulmonary disease, unspecified; E78.5 Hyperlipidemia, unspecified; E11.9 Type 2 diabetes mellitus without complications; Z86.73 Personal history of transient ischemic attack (TIA), and cerebral infarction without residual deficits; Z86.711 Personal history of pulmonary embolism; Z86.718 Personal history of other venous thrombosis and embolism; Z79.01 Long term (current) use of anticoagulants; Z90.710 Acquired absence of both cervix and uterus; Z90.49 Acquired absence of other specified parts of digestive tract
CPT/HCPCS: 99281; 99284; J1885; J8540

== ENCOUNTER 2017-01-16 08:57 | Emergency (ER) | payer OTHER ==
[~2017-01-16] VITALS: Ht 154.9 cm; Wt 94.5 kg
[2017-01-16 09:04] VITALS: BP 153/91
== END 2017-01-16 11:21 | disposition left against medical advice (07) ==
LOC: EME 08:57
DX: J45.909 Unspecified asthma, uncomplicated (principal); Z53.21 Procedure and treatment not carried out due to patient leaving prior to being seen by health care provider
CPT/HCPCS: 71020; 93005

== ENCOUNTER 2017-03-04 17:50 | Emergency (ER) | payer OTHER ==
[~2017-03-04] VITALS: Ht 154.9 cm; Wt 96.3 kg
[2017-03-04 19:37] LABS: EOSINOPHIL COUNT 0.1 K/uL (0-0.3); IMMATURE GRANULOCYTE (%) 0.3 % (0.0-0.7); INSTRUMENT ABS NEUTROPHIL CT 3.9 K/uL; LYMPHOCYTE COUNT 2.2 K/uL (1.0-2.8); MCH 29.5 PG (29.0-34.0); MCHC 34.6 G/DL (30.0-36.0); MCV 85.2 FL (83-99); MEAN PLAT.VOLUME 10.7 uM^3 (9.5-12.4); MONOCYTE (%) 5.5 % (3-12); MONOCYTE COUNT 0.4 K/uL (0-0.8); NEUTROPHIL (%) 58.9 % (45-76); NEUTROPHIL COUNT 3.9 K/uL (1.8-6.4); PLATELET COUNT 192 K/uL (156-360); RBC DIS.WIDTH-CV 13.1 % (11.8-14.6); RBC DIS.WIDTH-SD 40.6 % (39-53); RED BLOOD COUNT 4.58 M/uL (3.80-5.20); WHITE BLOOD COUNT 6.6 K/uL (4.1-10.2)
[2017-03-04 19:47] LABS: CHLORIDE 109 mEq/L (99-109); POTASSIUM 3.7 mEq/L (3.7-5.4); SODIUM 138 mEq/L (136-147)
[2017-03-04 19:49] LABS: GLUCOSE 169 mg/dL (70-99)
[2017-03-04 19:50] LABS: ANION GAP 7 MEQ/L (2-14)
[2017-03-04 19:51] LABS: TOTAL BILIRUBIN 0.8 mg/dL (0.0-1.0)
[2017-03-04 19:53] LABS: ALKALINE PHOSPHATASE 103 IU/L (3-129); GFR ESTIMATE (CALCULATED) > 59 mL/min/
[2017-03-04 19:54] LABS: UREA NITROGEN (BUN) 12 mg/dL (9-23)
[2017-03-04 20:27] LABS: LIPASE 133 U/L (1.0-51.0)
[2017-03-04] MEDS ORDERED: ZOFRAN4 MG PO (21:13)
[2017-03-04 21:24] VITALS: BP 166/96
== END 2017-03-04 21:33 | disposition home or self-care (01) ==
LOC: EME 17:50
PROVIDERS: Emergency Medicine; Nurse Practitioner Family
DX: R11.10 Vomiting, unspecified (principal); R19.7 Diarrhea, unspecified; R10.9 Unspecified abdominal pain; J44.9 Chronic obstructive pulmonary disease, unspecified; E11.9 Type 2 diabetes mellitus without complications; E78.5 Hyperlipidemia, unspecified; I10 Essential (primary) hypertension; Z79.84 Long term (current) use of oral hypoglycemic drugs; K21.9 Gastro-esophageal reflux disease without esophagitis; F32.9 Major depressive disorder, single episode, unspecified; M79.7 Fibromyalgia; R56.9 Unspecified convulsions; G47.33 Obstructive sleep apnea (adult) (pediatric); I25.10 Atherosclerotic heart disease of native coronary artery without angina pectoris; Z86.73 Personal history of transient ischemic attack (TIA), and cerebral infarction without residual deficits; Z86.718 Personal history of other venous thrombosis and embolism; Z88.8 Allergy status to other drugs, medicaments and biological substances; Z90.710 Acquired absence of both cervix and uterus
CPT/HCPCS: 80053; 83690; 85025; 87502; 99281; 99285; J2405; J7030

== ENCOUNTER 2017-03-18 07:47 | Emergency (ER) | payer OTHER ==
[~2017-03-18] VITALS: Ht 165.1 cm; Wt 96.8 kg
[2017-03-18 08:48] LABS: ADD MIUA? YES; BILIRUBIN NEGATIVE; BLOOD NEGATIVE; COLOR STRAW ((YELLOW)); GLUCOSE (STRIP) NEGATIVE; KETONES NEGATIVE; LEUKOCYTES TRACE; NITRITE NEGATIVE; PROTEIN (STRIP) NEGATIVE; SPECIFIC GRAVITY 1.015 (1.000-1.030); UROBILINOGEN 0.2 MG/DL (0.2-1.0)
[2017-03-18 08:57] LABS: BACTERIA RARE /HPF; EPITHELIAL CELLS 1+ /HPF; MUCUS TRACE /LPF; RED BLOOD CELLS 0-5 /HPF (0-5); UCUL ADDED? NO; WHITE BLOOD CELLS 0-5 /HPF (0-5)
[2017-03-18 08:59] LABS: HEMATOCRIT 38.5 % (36.0-46.0); MCH 29.5 PG (29.0-34.0); MCHC 34.3 G/DL (30.0-36.0); MCV 86.1 FL (83-99); MEAN PLAT.VOLUME 10.6 uM^3 (9.5-12.4); PLATELET COUNT 205 K/uL (156-360); RBC DIS.WIDTH-CV 12.8 % (11.8-14.6); RED BLOOD COUNT 4.47 M/uL (3.80-5.20); WHITE BLOOD COUNT 6.8 K/uL (4.1-10.2)
[2017-03-18 09:11] LABS: CHLORIDE 106 mEq/L (99-109); POTASSIUM 4.3 mEq/L (3.7-5.4); SODIUM 140 mEq/L (136-147)
[2017-03-18 09:14] LABS: GLUCOSE 143 mg/dL (70-99)
[2017-03-18 09:15] LABS: ANION GAP 9 MEQ/L (2-14); TOTAL BILIRUBIN 0.2 mg/dL (0.0-1.0)
[2017-03-18 09:17] LABS: ALKALINE PHOSPHATASE 112 IU/L (3-129); GFR ESTIMATE (CALCULATED) > 59 mL/min/
[2017-03-18 09:18] LABS: UREA NITROGEN (BUN) 20 mg/dL (9-23)
[2017-03-18] MEDS ORDERED: BENTYL20 MG PO (14:34)
[2017-03-18] MEDS ORDERED: IMODIUM A-D2 M2 PO (14:34)
[2017-03-18] MEDS ORDERED: ZOFRAN4 MG PO (14:34)
[2017-03-18 15:20] VITALS: BP 190/110
== END 2017-03-18 16:19 | disposition home or self-care (01) ==
LOC: EME 07:47
DX: R10.9 Unspecified abdominal pain (principal); R11.2 Nausea with vomiting, unspecified; K58.0 Irritable bowel syndrome with diarrhea; J44.9 Chronic obstructive pulmonary disease, unspecified; I10 Essential (primary) hypertension; E78.5 Hyperlipidemia, unspecified; E11.9 Type 2 diabetes mellitus without complications; M79.7 Fibromyalgia; K21.9 Gastro-esophageal reflux disease without esophagitis; I25.10 Atherosclerotic heart disease of native coronary artery without angina pectoris; G47.33 Obstructive sleep apnea (adult) (pediatric); F32.9 Major depressive disorder, single episode, unspecified; F31.9 Bipolar disorder, unspecified; Z86.718 Personal history of other venous thrombosis and embolism; Z86.711 Personal history of pulmonary embolism; Z86.73 Personal history of transient ischemic attack (TIA), and cerebral infarction without residual deficits; Z90.710 Acquired absence of both cervix and uterus; Z90.49 Acquired absence of other specified parts of digestive tract; Z88.8 Allergy status to other drugs, medicaments and biological substances
CPT/HCPCS: 80053; 81003; 85027; 87493; 99281; 99285; J2405; J7030

== ENCOUNTER 2017-04-06 01:23 | Emergency (ER) | payer OTHER ==
[~2017-04-06] VITALS: Ht 154.9 cm; Wt 95.8 kg
[~2017-04-06 01:23] MED LIST changes: +IMODIUM A-D2 M2 PO
[2017-04-06 02:14] LABS: HEMATOCRIT 41.3 % (36.0-46.0); MCH 29.2 PG (29.0-34.0); MCHC 33.4 G/DL (30.0-36.0); MCV 87.5 FL (83-99); MEAN PLAT.VOLUME 10.5 uM^3 (9.5-12.4); PLATELET COUNT 189 K/uL (156-360); RBC DIS.WIDTH-CV 12.9 % (11.8-14.6); RBC DIS.WIDTH-SD 41.6 % (39-53); RED BLOOD COUNT 4.72 M/uL (3.80-5.20); WHITE BLOOD COUNT 5.3 K/uL (4.1-10.2)
[2017-04-06 02:26] LABS: CHLORIDE 106 mEq/L (99-109); POTASSIUM 4.1 mEq/L (3.7-5.4); SODIUM 140 mEq/L (136-147)
[2017-04-06 02:27] LABS: GLUCOSE 127 mg/dL (70-99)
[2017-04-06 02:29] LABS: ANION GAP 7 MEQ/L (2-14)
[2017-04-06 02:31] LABS: GFR ESTIMATE (CALCULATED) > 59 mL/min/
[2017-04-06 02:32] LABS: UREA NITROGEN (BUN) 16 mg/dL (9-23)
[2017-04-06] MEDS ORDERED: PREDNISONE20 MG PO (03:09)
[2017-04-06] MEDS ORDERED: ZITHROMAX Z-PA250 MG PO (03:09)
[2017-04-06 03:41] VITALS: BP 171/97
== END 2017-04-06 04:07 | disposition home or self-care (01) ==
LOC: EME 01:23
DX: J44.0 Chronic obstructive pulmonary disease with (acute) lower respiratory infection (principal); J20.9 Acute bronchitis, unspecified; J44.1 Chronic obstructive pulmonary disease with (acute) exacerbation; M79.7 Fibromyalgia; K21.9 Gastro-esophageal reflux disease without esophagitis; I25.10 Atherosclerotic heart disease of native coronary artery without angina pectoris; I10 Essential (primary) hypertension; G47.33 Obstructive sleep apnea (adult) (pediatric); E78.5 Hyperlipidemia, unspecified; E11.9 Type 2 diabetes mellitus without complications; R56.9 Unspecified convulsions; K58.9 Irritable bowel syndrome, unspecified; F31.9 Bipolar disorder, unspecified; F32.9 Major depressive disorder, single episode, unspecified; Z86.73 Personal history of transient ischemic attack (TIA), and cerebral infarction without residual deficits; Z86.718 Personal history of other venous thrombosis and embolism; Z86.711 Personal history of pulmonary embolism; Z88.1 Allergy status to other antibiotic agents; Z88.6 Allergy status to analgesic agent; Z88.7 Allergy status to serum and vaccine; Z88.8 Allergy status to other drugs, medicaments and biological substances
CPT/HCPCS: 71020; 80048; 85027; 94640; 99281; 99283; J7512

== ENCOUNTER 2017-04-11 16:48 | Emergency (ER) | payer OTHER ==
[~2017-04-11] VITALS: Ht 154.9 cm; Wt 95.9 kg
[2017-04-11 19:45] VITALS: BP 139/82
== END 2017-04-11 19:46 | disposition home or self-care (01) ==
LOC: EME 16:48
DX: J20.9 Acute bronchitis, unspecified (principal); J44.0 Chronic obstructive pulmonary disease with (acute) lower respiratory infection; E11.9 Type 2 diabetes mellitus without complications; Z79.84 Long term (current) use of oral hypoglycemic drugs; E78.5 Hyperlipidemia, unspecified; I10 Essential (primary) hypertension; G47.33 Obstructive sleep apnea (adult) (pediatric); I25.10 Atherosclerotic heart disease of native coronary artery without angina pectoris; F32.9 Major depressive disorder, single episode, unspecified; M79.7 Fibromyalgia; K21.9 Gastro-esophageal reflux disease without esophagitis; Z86.73 Personal history of transient ischemic attack (TIA), and cerebral infarction without residual deficits; K58.0 Irritable bowel syndrome with diarrhea; Z88.1 Allergy status to other antibiotic agents; Z88.8 Allergy status to other drugs, medicaments and biological substances
CPT/HCPCS: 71020; 94640; 99281; 99284

== ENCOUNTER 2017-04-26 17:12 | Emergency (ER) | payer OTHER ==
[~2017-04-26] VITALS: Ht 154.9 cm; Wt 98.2 kg
[2017-04-26] MEDS ORDERED: CYMBALTA20 MG PO (17:26)
[2017-04-26] MEDS ORDERED: ATARAX10 MG PO (17:26)
[2017-04-26] MEDS ORDERED: SINGULAIR CHEWAB4 MG PO (17:27)
[2017-04-26] MEDS ORDERED: PRILOSEC10 MG PO (17:27)
[2017-04-26] MEDS ORDERED: COZAAR25 MG PO (17:27)
[2017-04-26] MEDS ORDERED: TUDORZA PRESS400 MCG IH (17:27)
[2017-04-26 17:38] LABS: HEMATOCRIT 39.2 % (36.0-46.0); HEMOGLOBIN 13.5 G/DL (11.9-15.5); MCH 29.6 PG (29.0-34.0); MCHC 34.4 G/DL (30.0-36.0); PLATELET COUNT 160 K/uL (156-360); RBC DIS.WIDTH-CV 12.9 % (11.8-14.6); RBC DIS.WIDTH-SD 40.4 % (39-53); RED BLOOD COUNT 4.56 M/uL (3.80-5.20); WHITE BLOOD COUNT 4.6 K/uL (4.1-10.2)
[2017-04-26 17:46] LABS: CHLORIDE 108 mEq/L (99-109); PTT 26.4 SEC (25-37); SODIUM 137 mEq/L (136-147)
[2017-04-26 17:48] LABS: GLUCOSE 117 mg/dL (70-99)
[2017-04-26 17:52] LABS: CREATININE 0.7 mg/dL (0.6-1.3); GFR ESTIMATE (CALCULATED) > 59 mL/min/
[2017-04-26 17:53] LABS: UREA NITROGEN (BUN) 13 mg/dL (9-23)
[2017-04-26 18:00] LABS: TROP-I INTERPRETATION NEGATIVE; TROPONIN-I < 0.01 ng/mL (0.0-0.30)
[2017-04-26 20:08] LABS: APPEARANCE CLEAR ((CLEAR)); BILIRUBIN NEGATIVE; BLOOD SMALL; COLOR STRAW ((YELLOW)); GLUCOSE (STRIP) NEGATIVE; KETONES NEGATIVE; LEUKOCYTES MODERATE; NITRITE NEGATIVE; PROTEIN (STRIP) NEGATIVE; SPECIFIC GRAVITY 1.011 (1.000-1.030); UROBILINOGEN 0.2 MG/DL (0.2-1.0)
[2017-04-26 20:18] LABS: BACTERIA 3+ /HPF; EPITHELIAL CELLS 1+ /HPF; MUCUS NONE SEEN /LPF; RED BLOOD CELLS 0-5 /HPF (0-5); UCUL ADDED? YES
[2017-04-26] MEDS ORDERED: BACTRIM,SEPT1 TABLET PO (20:36)
[2017-04-26 21:22] VITALS: BP 109/73
== END 2017-04-26 21:25 | disposition home or self-care (01) ==
LOC: EME 17:12
PROVIDERS: Emergency Medicine
DX: N12 Tubulo-interstitial nephritis, not specified as acute or chronic (principal); Z86.73 Personal history of transient ischemic attack (TIA), and cerebral infarction without residual deficits; M79.7 Fibromyalgia; K58.9 Irritable bowel syndrome, unspecified; K21.9 Gastro-esophageal reflux disease without esophagitis; J44.9 Chronic obstructive pulmonary disease, unspecified; I25.10 Atherosclerotic heart disease of native coronary artery without angina pectoris; G47.33 Obstructive sleep apnea (adult) (pediatric); F32.9 Major depressive disorder, single episode, unspecified; E78.5 Hyperlipidemia, unspecified; E11.9 Type 2 diabetes mellitus without complications; I10 Essential (primary) hypertension; Z90.710 Acquired absence of both cervix and uterus; Z88.8 Allergy status to other drugs, medicaments and biological substances; Z88.1 Allergy status to other antibiotic agents; Z86.711 Personal history of pulmonary embolism; Z86.718 Personal history of other venous thrombosis and embolism
CPT/HCPCS: 71046; 71275; 74177; 80048; 81003; 84484; 85027; 85610; 85730; 87077; 87086; 87186; 93005; 99281; 99285; J2270

== ENCOUNTER 2017-05-02 12:00 | Emergency (ER) | payer OTHER ==
[~2017-05-02] VITALS: Ht 154.9 cm; Wt 96.2 kg
[~2017-05-02 12:00] MED LIST changes: +ATARAX10 MG PO; +COZAAR25 MG PO; +CYMBALTA20 MG PO; +PRILOSEC10 MG PO; +SINGULAIR CHEWAB4 MG PO; +TUDORZA PRESS400 MCG IH
[2017-05-02] MEDS ORDERED: TESSALON PERLE100 MG PO (13:07)
[2017-05-02] MEDS ORDERED: VIBRAMYCIN100 MG PO (13:07)
[2017-05-02 13:36] VITALS: BP 116/71
== END 2017-05-02 13:38 | disposition home or self-care (01) ==
LOC: EME 12:00
DX: J44.0 Chronic obstructive pulmonary disease with (acute) lower respiratory infection (principal); J20.9 Acute bronchitis, unspecified; I10 Essential (primary) hypertension; E11.9 Type 2 diabetes mellitus without complications; E78.5 Hyperlipidemia, unspecified; K21.9 Gastro-esophageal reflux disease without esophagitis; I25.10 Atherosclerotic heart disease of native coronary artery without angina pectoris; M79.7 Fibromyalgia; K58.0 Irritable bowel syndrome with diarrhea; G47.33 Obstructive sleep apnea (adult) (pediatric); F32.9 Major depressive disorder, single episode, unspecified; F31.9 Bipolar disorder, unspecified; M19.90 Unspecified osteoarthritis, unspecified site; Z87.440 Personal history of urinary (tract) infections; Z86.718 Personal history of other venous thrombosis and embolism; Z86.711 Personal history of pulmonary embolism; Z79.01 Long term (current) use of anticoagulants; Z90.49 Acquired absence of other specified parts of digestive tract; Z90.710 Acquired absence of both cervix and uterus; Z88.6 Allergy status to analgesic agent; Z88.1 Allergy status to other antibiotic agents; Z88.7 Allergy status to serum and vaccine; Z88.8 Allergy status to other drugs, medicaments and biological substances
CPT/HCPCS: 99281; 99284

== ENCOUNTER → 2017-06-12 | Outpatient (CLI) | payer OTHER | END | disposition home or self-care (01) | LOC: NUC 08:34 | DX: R93.7 Abnormal findings on diagnostic imaging of other parts of musculoskeletal system (principal); Z96.652 Presence of left artificial knee joint | CPT/HCPCS: 78315; A9503 ==

== ENCOUNTER 2017-06-24 17:12 | Inpatient (IN) | payer OTHER ==
[~2017-06-24] VITALS: Ht 154.9 cm; Wt 98.2 kg
[~2017-06-24 17:12] MED LIST changes: -ATARAX10 MG PO
[2017-06-24] MEDS ORDERED: TRULICITY0.75 MG/0. SC (19:05)
[2017-06-24] MEDS ORDERED: CYMBALTA60 MG PO (19:06)
[2017-06-24] MEDS ORDERED: PRAVASTATIN SOD80 MG PO (19:09)
[2017-06-24] MEDS ORDERED: LYRICA100 MG PO (19:10)
[2017-06-24] MEDS ORDERED: SINGULAIR10 MG PO (19:10)
[2017-06-24] MEDS ORDERED: INCRUSE ELLI62.5 MCG IH (19:11)
[2017-06-24] MEDS ORDERED: VENTOLIN HFA18 GM IH (19:13)
[2017-06-24] MEDS ORDERED: LMX 530 GM TP (19:14)
[2017-06-24] MEDS ORDERED: BUPROPION XL150 MG PO (19:14)
[2017-06-24] MEDS ORDERED: OXAYDO5 MG PO (19:19)
[2017-06-24] MEDS ORDERED: EXCEDRIN MIGRA1 EAC3 PO (19:20)
[2017-06-24 20:03] LABS: HEMATOCRIT 41.7 % (36.0-46.0); HEMOGLOBIN 13.8 G/DL (11.9-15.5); MCH 28.9 PG (29.0-34.0); MCHC 33.1 G/DL (30.0-36.0); MCV 87.4 FL (83-99); PLATELET COUNT 187 K/uL (156-360); RBC DIS.WIDTH-CV 13.1 % (11.8-14.6); RED BLOOD COUNT 4.77 M/uL (3.80-5.20); WHITE BLOOD COUNT 7.4 K/uL (4.1-10.2)
[2017-06-24 20:12] LABS: AMPHETAMINE NEGATIVE (500 ng/mL); BARBITURATES NEGATIVE (200 ng/mL); BENZODIAZEPINES NEGATIVE (150 ng/mL); BUPRENORPHINE NEGATIVE (10 ng/mL); COCAINE NEGATIVE (150 ng/mL); METHADONE NEGATIVE (200 ng/mL); METHAMPHETAMINE PRESUMPTIVE POSITIVE (500 ng/mL); OPIATES (MORPHINE) NEGATIVE (100 ng/mL); OXYCODONE NEGATIVE (100 ng/mL); PHENCYCLIDINE NEGATIVE (25 ng/mL); PROPOXYPHENE NEGATIVE (300 ng/mL); THC CANNABINOIDS NEGATIVE (50 ng/mL); TRICYCLIC ANTIDEPRESSANTS NEGATIVE (300 ng/mL)
[2017-06-24 20:13] LABS: CHLORIDE 107 MEQ/L (99-109); POTASSIUM 4.2 MEQ/L (3.7-5.4); SODIUM 140 MEQ/L (136-147)
[2017-06-24 20:29] LABS: ACETAMINOPHEN (TYLENOL) < 10 MCG/ML (10-30); CREATININE 0.9 MG/DL (0.6-1.3); GFR ESTIMATE (CALCULATED) > 59 mL/min/; GLUCOSE 139 mg/dL (70-99); SALICYLATE < 3.0 MG/DL (15-30); SERUM ETHYL ALCOHOL < 10 mg/dL; UREA NITROGEN (BUN) 18 mg/dL (9-23)
[2017-06-24 22:12] VITALS: BP 163/79
[2017-06-24 22:19] VITALS: BP 163/79
[2017-06-25 07:54] VITALS: BP 140/76
[2017-06-25 16:08] VITALS: BP 131/78
[2017-06-26 07:53] VITALS: BP 153/74
[2017-06-26 15:52] VITALS: BP 144/77
[2017-06-27 09:22] VITALS: BP 129/73
[2017-06-27 15:33] VITALS: BP 137/75
[2017-06-28 08:15] VITALS: BP 133/83
[2017-06-28] MEDS ORDERED: BUPROPION XL300 MG PO (11:18)
[2017-06-28] MEDS ORDERED: ROPINIROLE HCL2 MG PO (11:18)
== END 2017-06-28 12:40 | disposition home or self-care (01) | DRG 885 ==
LOC: EME 17:12 → ENRESERV 21:25 → EDOF 21:49 → 1WEST 21:49
PROVIDERS: Emergency Medicine
DX: F33.2 Major depressive disorder, recurrent severe without psychotic features (principal); R45.851 Suicidal ideations; F10.20 Alcohol dependence, uncomplicated; E11.9 Type 2 diabetes mellitus without complications; E78.5 Hyperlipidemia, unspecified; I25.10 Atherosclerotic heart disease of native coronary artery without angina pectoris; K21.9 Gastro-esophageal reflux disease without esophagitis; I10 Essential (primary) hypertension; G25.81 Restless legs syndrome; Z86.73 Personal history of transient ischemic attack (TIA), and cerebral infarction without residual deficits; J44.9 Chronic obstructive pulmonary disease, unspecified; Z87.891 Personal history of nicotine dependence; K58.9 Irritable bowel syndrome, unspecified; M79.7 Fibromyalgia; G47.33 Obstructive sleep apnea (adult) (pediatric)
CPT/HCPCS: 80048; 85027; 90839; 94640; 94640 76; 97150 GO; 97165 GO; 99281; 99285; G0480; Q0177

== ENCOUNTER 2017-06-30 17:40 | Observation (INO) | payer OTHER ==
[~2017-06-30] VITALS: Ht 154.9 cm; Wt 118.8 kg
[~2017-06-30 17:40] MED LIST changes: +BUPROPION XL150 MG PO; +BUPROPION XL300 MG PO; +EXCEDRIN MIGRA1 EAC3 PO; +INCRUSE ELLI62.5 MCG IH; +LMX 530 GM TP; +LYRICA100 MG PO; +OXAYDO5 MG PO; +ROPINIROLE HCL2 MG PO
[2017-06-30 19:55] LABS: HEMATOCRIT 41.7 % (36.0-46.0); HEMOGLOBIN 14.2 G/DL (11.9-15.5); MCHC 34.1 G/DL (30.0-36.0); MCV 85.1 FL (83-99); PLATELET COUNT 207 K/uL (156-360); RBC DIS.WIDTH-CV 12.9 % (11.8-14.6); WHITE BLOOD COUNT 8.2 K/uL (4.1-10.2)
[2017-06-30 20:05] LABS: CHLORIDE 106 mEq/L (99-109); SODIUM 138 mEq/L (136-147)
[2017-06-30 20:07] LABS: GLUCOSE 113 mg/dL (70-99)
[2017-06-30 20:11] LABS: CREATININE 0.9 mg/dL (0.6-1.3); GFR ESTIMATE (CALCULATED) > 59 mL/min/
[2017-06-30 20:12] LABS: UREA NITROGEN (BUN) 15 mg/dL (9-23)
[2017-06-30 20:16] LABS: TROP-I INTERPRETATION NEGATIVE; TROPONIN-I < 0.01 ng/mL (0.0-0.30)
[2017-06-30] MEDS ORDERED: PREDNISONE50 MG PO (22:11)
[2017-06-30 23:11] LABS: SERUM ETHYL ALCOHOL < 10 mg/dL
[2017-06-30 23:29] LABS: TROP-I INTERPRETATION NEGATIVE; TROPONIN-I < 0.01 ng/mL (0.0-0.30)
[2017-07-01] VITALS (7 sets, daily range): BP systolic 111–161; BP diastolic 58–83
[2017-07-01 00:28] LABS: APPEARANCE SL.HAZY ((CLEAR)); BILIRUBIN NEGATIVE; BLOOD NEGATIVE; COLOR YELLOW ((YELLOW)); GLUCOSE (STRIP) NEGATIVE; KETONES NEGATIVE; LEUKOCYTES MODERATE; NITRITE NEGATIVE; PROTEIN (STRIP) 30; SPECIFIC GRAVITY 1.026 (1.000-1.030); UROBILINOGEN 0.2 MG/DL (0.2-1.0)
[2017-07-01 00:41] LABS: BACTERIA RARE /HPF; EPITHELIAL CELLS RARE /HPF; HYALINE CASTS 0-5 /LPF; MUCUS 2+ /LPF; UCUL ADDED? YES; WHITE BLOOD CELLS 15-20 /HPF (0-5)
[2017-07-01 04:52] LABS: BENZODIAZEPINES, URINE SCREEN POSITIVE (200 ng/mL)
[2017-07-01 08:38] LABS: TROP-I INTERPRETATION NEGATIVE; TROPONIN-I < 0.01 ng/mL (0.0-0.30)
[2017-07-01 08:42] LABS: HDL CHOLESTEROL 57 MG/DL (Desirable>=50); LDL CHOLESTEROL 77 mg/dL (Desirable<100); NON-HDL CHOLESTEROL 89 mg/dL (Desirable<160); TOTAL CHOLESTEROL 146 mg/dL (Desirable<200); TRIGLYCERIDES 59 MG/DL (Normal: <150)
[2017-07-01] MEDS ORDERED: ROPINIROLE HCL5 MG PO (10:57)
[2017-07-01] MEDS ORDERED: DUONEB 2.5-0.5 M3 ML AEROSOL (10:59)
[2017-07-01] MEDS ORDERED: OXYCODONE HCL5 MG PO (10:59)
[2017-07-02 03:32] VITALS: BP 122/69
[2017-07-02 06:30] LABS: BASOPHIL (%) 0.1 % (0-1); EOSINOPHIL (%) 0 % (0-5); HEMATOCRIT 37.6 % (36.0-46.0); HEMOGLOBIN 12.4 G/DL (11.9-15.5); IMMATURE GRANULOCYTE (%) 0.5 % (0.0-0.7); LYMPHOCYTE (%) 23.7 % (15-42); MCH 28.8 PG (29.0-34.0); MCV 87.4 FL (83-99); MONOCYTE COUNT 0.5 K/uL (0-0.8); NEUTROPHIL (%) 69.7 % (45-76); NEUTROPHIL COUNT 5.9 K/uL (1.8-6.4); PLATELET COUNT 177 K/uL (156-360); RBC DIS.WIDTH-CV 13.2 % (11.8-14.6); RBC DIS.WIDTH-SD 41.9 % (39-53); WHITE BLOOD COUNT 8.5 K/uL (4.1-10.2)
[2017-07-02 06:51] LABS: CHLORIDE 106 MEQ/L (99-109); CREATININE 0.8 MG/DL (0.6-1.3); GFR ESTIMATE (CALCULATED) > 59 mL/min/; GLUCOSE 151 mg/dL (70-99); POTASSIUM 4.3 MEQ/L (3.7-5.4); SODIUM 140 MEQ/L (136-147); UREA NITROGEN (BUN) 20 mg/dL (9-23)
[2017-07-02 07:21] VITALS: BP 132/71
[2017-07-02 12:21] VITALS: BP 128/70
[2017-07-02] MEDS ORDERED: NITROSTAT0.4 MG SL (12:25)
[2017-07-02] MEDS ORDERED: ASPIRIN81 M2 PO (12:25)
[2017-07-02] MEDS ORDERED: PROTONIX40 MG PO (12:26)
[2017-07-02] MEDS ORDERED: PEPCID20 MG PO (12:26)
== END 2017-07-02 13:52 | disposition home or self-care (01) ==
LOC: EME 17:40 → EDOF 22:57 → 5WEST 22:57 → EDOF 22:57 → ENRESERV 22:58 → 5WEST 07-01 00:03 → ENPENDDIS 07-02 12:29 → 5WEST 07-02 13:52
PROVIDERS: Emergency Medicine; Hospitalist; Internal Medicine; Physician Assistant Medical
DX: R07.89 Other chest pain (principal); J96.01 Acute respiratory failure with hypoxia; J02.9 Acute pharyngitis, unspecified; R13.10 Dysphagia, unspecified; G89.29 Other chronic pain; M79.7 Fibromyalgia; G25.81 Restless legs syndrome; Z86.718 Personal history of other venous thrombosis and embolism; Z86.711 Personal history of pulmonary embolism; Z79.01 Long term (current) use of anticoagulants; E11.40 Type 2 diabetes mellitus with diabetic neuropathy, unspecified; I10 Essential (primary) hypertension; E78.5 Hyperlipidemia, unspecified; G47.33 Obstructive sleep apnea (adult) (pediatric); F41.9 Anxiety disorder, unspecified; E66.9 Obesity, unspecified; Z68.42 Body mass index [BMI] 45.0-49.9, adult; Z87.891 Personal history of nicotine dependence; M54.5 Low back pain; F32.9 Major depressive disorder, single episode, unspecified; J44.9 Chronic obstructive pulmonary disease, unspecified; Z90.49 Acquired absence of other specified parts of digestive tract; Z90.710 Acquired absence of both cervix and uterus; F10.10 Alcohol abuse, uncomplicated; Z86.19 Personal history of other infectious and parasitic diseases; Z88.1 Allergy status to other antibiotic agents; Z88.7 Allergy status to serum and vaccine; Z88.8 Allergy status to other drugs, medicaments and biological substances; Z91.048 Other nonmedicinal substance allergy status
CPT/HCPCS: 71046; 71275; 80048; 80061; 80306 90; 81003; 82948; 84484; 85025; 85027; 87086; 87641; 87651 90; 93005; 94640; 94640 76; 94760; 94799; 99202; 99281; 99285; C9113; G0378; G0480; J1200; J1885; J2270; J2930; J7512

== ENCOUNTER 2017-07-07 13:04 | Emergency (ER) | payer OTHER ==
[~2017-07-07] VITALS: Ht 154.9 cm; Wt 96.8 kg
[~2017-07-07 13:04] MED LIST changes: +ASPIRIN81 M2 PO; +PEPCID20 MG PO
[2017-07-07 13:53] LABS: HEMOGLOBIN 14.2 G/DL (11.9-15.5); MCH 28.7 PG (29.0-34.0); MCHC 33.8 G/DL (30.0-36.0); MCV 84.8 FL (83-99); PLATELET COUNT 200 K/uL (156-360); RBC DIS.WIDTH-CV 12.6 % (11.8-14.6); RBC DIS.WIDTH-SD 39.1 % (39-53); RED BLOOD COUNT 4.95 M/uL (3.80-5.20); WHITE BLOOD COUNT 5.5 K/uL (4.1-10.2)
[2017-07-07 13:58] LABS: CHLORIDE 105 mEq/L (99-109); POTASSIUM 4.3 mEq/L (3.7-5.4); SODIUM 140 mEq/L (136-147)
[2017-07-07 13:59] LABS: GLUCOSE 120 mg/dL (70-99)
[2017-07-07 14:03] LABS: CREATININE 0.8 mg/dL (0.6-1.3); GFR ESTIMATE (CALCULATED) > 59 mL/min/
[2017-07-07 14:04] LABS: UREA NITROGEN (BUN) 14 mg/dL (9-23)
[2017-07-07 14:26] LABS: TROP-I INTERPRETATION NEGATIVE; TROPONIN-I < 0.01 ng/mL (0.0-0.30)
[2017-07-07] MEDS ORDERED: PREDNISONE20 MG PO (15:51)
[2017-07-07 16:42] LABS: TROP-I INTERPRETATION NEGATIVE; TROPONIN-I < 0.01 ng/mL (0.0-0.30)
[2017-07-07 16:51] VITALS: BP 159/95
== END 2017-07-07 17:20 | disposition home or self-care (01) ==
LOC: EME 13:04
PROVIDERS: Physician Assistant Medical
DX: J45.901 Unspecified asthma with (acute) exacerbation (principal); J44.1 Chronic obstructive pulmonary disease with (acute) exacerbation; F41.9 Anxiety disorder, unspecified; Z86.73 Personal history of transient ischemic attack (TIA), and cerebral infarction without residual deficits; M79.7 Fibromyalgia; I10 Essential (primary) hypertension; F32.9 Major depressive disorder, single episode, unspecified; E78.5 Hyperlipidemia, unspecified; E11.9 Type 2 diabetes mellitus without complications; Z90.710 Acquired absence of both cervix and uterus; I25.10 Atherosclerotic heart disease of native coronary artery without angina pectoris; G47.33 Obstructive sleep apnea (adult) (pediatric); K21.9 Gastro-esophageal reflux disease without esophagitis; Z88.6 Allergy status to analgesic agent; Z88.1 Allergy status to other antibiotic agents; Z79.891 Long term (current) use of opiate analgesic
CPT/HCPCS: 71046; 80048; 84484; 85027; 93005; 94640; 99281; 99284; J7512; Q0177

== ENCOUNTER 2017-07-09 08:24 | Inpatient (IN) | payer OTHER ==
[~2017-07-09] VITALS: Ht 152.4 cm; Wt 96.6 kg
[2017-07-09 09:20] LABS: HEMATOCRIT 38.5 % (36.0-46.0); HEMOGLOBIN 12.9 G/DL (11.9-15.5); MCH 28.8 PG (29.0-34.0); MCHC 33.5 G/DL (30.0-36.0); MCV 85.9 FL (83-99); RBC DIS.WIDTH-CV 13.2 % (11.8-14.6); RBC DIS.WIDTH-SD 41.4 % (39-53); RED BLOOD COUNT 4.48 M/uL (3.80-5.20); WHITE BLOOD COUNT 3.8 K/uL (4.1-10.2)
[2017-07-09 09:28] LABS: CHLORIDE 108 mEq/L (99-109); POTASSIUM 4.3 mEq/L (3.7-5.4)
[2017-07-09 09:29] LABS: SODIUM 139 mEq/L (136-147)
[2017-07-09 09:30] LABS: GLUCOSE 125 mg/dL (70-99)
[2017-07-09 09:34] LABS: CREATININE 0.9 mg/dL (0.6-1.3); GFR ESTIMATE (CALCULATED) > 59 mL/min/
[2017-07-09 09:35] LABS: UREA NITROGEN (BUN) 14 mg/dL (9-23)
[2017-07-09 10:15] LABS: PLAT.SUFFICIENCY DECREASED
[2017-07-09 10:16] LABS: PLATELET COUNT 111 K/uL (156-360)
[2017-07-09 10:33] LABS: TROP-I INTERPRETATION NEGATIVE; TROPONIN-I < 0.01 ng/mL (0.0-0.30)
[2017-07-09] MEDS ORDERED: WELLBUTRIN XL150 MG PO (10:36)
[2017-07-09] MEDS ORDERED: PROTONIX40 MG PO (10:48)
[2017-07-09 16:53] LABS: TROP-I INTERPRETATION NEGATIVE; TROPONIN-I < 0.01 ng/mL (0.0-0.30)
[2017-07-09 16:56] VITALS: BP 159/71
[2017-07-09 19:07] VITALS: BP 133/61
[2017-07-09 22:44] LABS: TROP-I INTERPRETATION NEGATIVE; TROPONIN-I < 0.01 ng/mL (0.0-0.30)
[2017-07-09 22:58] VITALS: BP 110/57
[2017-07-10 03:11] VITALS: BP 144/75
[2017-07-10 06:59] LABS: CHLORIDE 107 MEQ/L (99-109); CREATININE 0.9 MG/DL (0.6-1.3); GFR ESTIMATE (CALCULATED) > 59 mL/min/; POTASSIUM 4.5 MEQ/L (3.7-5.4); SODIUM 137 MEQ/L (136-147); UREA NITROGEN (BUN) 16 mg/dL (9-23)
[2017-07-10 07:05] VITALS: BP 174/86
[2017-07-10 07:08] LABS: GLUCOSE 251 mg/dL (70-99)
[2017-07-10 11:09] VITALS: BP 157/74
[2017-07-10 11:47] LABS: HEMATOCRIT 39.6 % (36.0-46.0); MCH 28.8 PG (29.0-34.0); MCHC 32.8 G/DL (30.0-36.0); MCV 87.8 FL (83-99); RBC DIS.WIDTH-CV 13.4 % (11.8-14.6); RBC DIS.WIDTH-SD 43.6 % (39-53); RED BLOOD COUNT 4.51 M/uL (3.80-5.20); WHITE BLOOD COUNT 5.5 K/uL (4.1-10.2)
[2017-07-10 11:58] LABS: PLATELET COUNT 164 K/uL (156-360)
[2017-07-10 12:27] LABS: CHLORIDE 106 MEQ/L (99-109); POTASSIUM 4.3 MEQ/L (3.7-5.4); SODIUM 138 MEQ/L (136-147)
[2017-07-10 12:33] LABS: CREATININE 0.8 MG/DL (0.6-1.3); GFR ESTIMATE (CALCULATED) > 59 mL/min/; GLUCOSE 256 mg/dL (70-99); UREA NITROGEN (BUN) 17 mg/dL (9-23)
[2017-07-10 15:00] VITALS: BP 160/88
[2017-07-10 23:52] VITALS: BP 160/79
[2017-07-11 07:00] VITALS: BP 159/72
[2017-07-11 10:50] VITALS: BP 143/84
[2017-07-11 15:00] VITALS: BP 143/83
[2017-07-11 22:42] VITALS: BP 167/86
[2017-07-12 07:15] VITALS: BP 183/79
[2017-07-12 09:30] VITALS: BP 164/77
[2017-07-12 14:55] VITALS: BP 184/82
[2017-07-12 15:37] VITALS: BP 172/70
[2017-07-12 22:52] VITALS: BP 111/67
[2017-07-13 06:57] VITALS: BP 134/69
[2017-07-13] MEDS ORDERED: DOXYCYCLINE HY100 M3 PO (09:51)
[2017-07-13] MEDS ORDERED: PREDNISONE20 MG PO (09:51)
[2017-07-13] MEDS ORDERED: AMLODIPINE BESYL5 MG PO (09:51)
== END 2017-07-13 13:26 | disposition home or self-care (01) | DRG 202 ==
LOC: EME 08:24 → EDOF 10:10 → ENRESERV 10:12 → 5EAST 11:08 → EDOF 11:08 → ENRESERV 11:14 → 5EAST 16:02 → ENPENDDIS 07-13 → 5EAST 07-13 13:26
PROVIDERS: Internal Medicine; Nurse Practitioner Family; Physician Assistant
DX: J45.51 Severe persistent asthma with (acute) exacerbation (principal); J96.01 Acute respiratory failure with hypoxia; J20.9 Acute bronchitis, unspecified; E11.42 Type 2 diabetes mellitus with diabetic polyneuropathy; I10 Essential (primary) hypertension; I25.10 Atherosclerotic heart disease of native coronary artery without angina pectoris; E78.5 Hyperlipidemia, unspecified; G25.81 Restless legs syndrome; G47.33 Obstructive sleep apnea (adult) (pediatric); G89.4 Chronic pain syndrome; K21.9 Gastro-esophageal reflux disease without esophagitis; M79.7 Fibromyalgia; K58.0 Irritable bowel syndrome with diarrhea; F10.20 Alcohol dependence, uncomplicated; F32.9 Major depressive disorder, single episode, unspecified; F41.9 Anxiety disorder, unspecified; M19.90 Unspecified osteoarthritis, unspecified site; Z79.4 Long term (current) use of insulin; Z79.01 Long term (current) use of anticoagulants; Z86.711 Personal history of pulmonary embolism; Z86.718 Personal history of other venous thrombosis and embolism; Z86.73 Personal history of transient ischemic attack (TIA), and cerebral infarction without residual deficits; Z87.891 Personal history of nicotine dependence; Z59.9 Problem related to housing and economic circumstances, unspecified
CPT/HCPCS: 71046; 80048; 80048 91; 82948; 83880; 84484; 85027; 93005; 94640; 94640 76; 94644; 94799; 99202; 99281; 99284; 99285; J0360; J0696; J1815; J2405; J2920; J2930; J3475; J7030; J7050; J7512; Q0177

== ENCOUNTER 2017-09-09 08:49 | Emergency (ER) | payer OTHER ==
[~2017-09-09] VITALS: Ht 154.9 cm; Wt 90.8 kg
[~2017-09-09 08:49] MED LIST changes: +DOXYCYCLINE HY100 M3 PO; +WELLBUTRIN XL150 MG PO
[2017-09-09 09:37] LABS: HEMATOCRIT 40.6 % (36.0-46.0); HEMOGLOBIN 13.9 G/DL (11.9-15.5); MCH 29.1 PG (29.0-34.0); MCHC 34.2 G/DL (30.0-36.0); MCV 84.9 FL (83-99); PLATELET COUNT 191 K/uL (156-360); RBC DIS.WIDTH-CV 13.8 % (11.8-14.6); RBC DIS.WIDTH-SD 43.1 % (39-53); RED BLOOD COUNT 4.78 M/uL (3.80-5.20); WHITE BLOOD COUNT 6.5 K/uL (4.1-10.2)
[2017-09-09 09:45] LABS: APPEARANCE SL.HAZY ((CLEAR)); BILIRUBIN NEGATIVE; BLOOD NEGATIVE; COLOR AMBER ((YELLOW)); GLUCOSE (STRIP) NEGATIVE; KETONES NEGATIVE; LEUKOCYTES NEGATIVE; NITRITE NEGATIVE; PROTEIN (STRIP) 30; SPECIFIC GRAVITY 1.027 (1.000-1.030); UROBILINOGEN 0.2 MG/DL (0.2-1.0)
[2017-09-09 09:48] LABS: ALBUMIN 3.6 g/dL (3.2-4.8); CHLORIDE 107 mEq/L (99-109); POTASSIUM 4.1 mEq/L (3.7-5.4); SODIUM 139 mEq/L (136-147)
[2017-09-09 09:50] LABS: GLUCOSE 101 mg/dL (70-99); TOTAL PROTEIN 6.2 g/dL (6.4-8.3)
[2017-09-09 09:51] LABS: BACTERIA NONE SEEN /HPF; EPITHELIAL CELLS 1+ /HPF; MUCUS 3+ /LPF; RED BLOOD CELLS 0-5 /HPF (0-5); WHITE BLOOD CELLS 0-5 /HPF (0-5)
[2017-09-09 09:52] LABS: TOTAL BILIRUBIN 0.5 mg/dL (0.0-1.0)
[2017-09-09 09:54] LABS: ALKALINE PHOSPHATASE 97 IU/L (3-129); CREATININE 0.7 mg/dL (0.6-1.3); GFR ESTIMATE (CALCULATED) > 59 mL/min/
[2017-09-09 09:55] LABS: UREA NITROGEN (BUN) 10 mg/dL (9-23)
[2017-09-09 09:56] LABS: AST (GOT) 21 IU/L (2-34); DIRECT BILIRUBIN 0.3 mg/dL (0.0-0.3)
[2017-09-09 09:57] LABS: ALT (GPT) 21 IU/L (3-49); LIPASE 48 U/L (1.0-51.0)
[2017-09-09] MEDS ORDERED: TESSALON PERLE100 MG PO (10:03)
[2017-09-09] MEDS ORDERED: ZOFRAN4 MG PO (10:08)
[2017-09-09 10:59] VITALS: BP 120/78
== END 2017-09-09 11:01 | disposition home or self-care (01) ==
LOC: EME 08:49
PROVIDERS: Emergency Medicine
DX: J20.9 Acute bronchitis, unspecified (principal); R19.7 Diarrhea, unspecified; J43.9 Emphysema, unspecified; E78.5 Hyperlipidemia, unspecified; K21.9 Gastro-esophageal reflux disease without esophagitis; I10 Essential (primary) hypertension; E11.9 Type 2 diabetes mellitus without complications; M79.7 Fibromyalgia; F32.9 Major depressive disorder, single episode, unspecified; Z86.73 Personal history of transient ischemic attack (TIA), and cerebral infarction without residual deficits; Z96.652 Presence of left artificial knee joint; K58.0 Irritable bowel syndrome with diarrhea; Z88.6 Allergy status to analgesic agent; Z88.8 Allergy status to other drugs, medicaments and biological substances; Z87.891 Personal history of nicotine dependence; G47.33 Obstructive sleep apnea (adult) (pediatric); Z90.710 Acquired absence of both cervix and uterus
CPT/HCPCS: 71046; 80048; 80076; 81003; 83690; 85027; 87086; 99281; 99284; J2405; J7030

== ENCOUNTER 2017-09-16 09:44 | Inpatient (IN) | payer OTHER ==
[~2017-09-16] VITALS: Ht 154.9 cm; Wt 91.4 kg
[2017-09-16 12:04] LABS: BASOPHIL (%) 0.5 % (0-1); EOSINOPHIL (%) 2.4 % (0-5); EOSINOPHIL COUNT 0.1 K/uL (0-0.3); HEMATOCRIT 39.8 % (36.0-46.0); HEMOGLOBIN 13.6 G/DL (11.9-15.5); IMMATURE GRANULOCYTE (%) 0.3 % (0.0-0.7); LYMPHOCYTE (%) 34.4 % (15-42); MCH 29.1 PG (29.0-34.0); MCHC 34.2 G/DL (30.0-36.0); MCV 85.2 FL (83-99); MONOCYTE (%) 5.6 % (3-12); MONOCYTE COUNT 0.3 K/uL (0-0.8); NEUTROPHIL (%) 56.8 % (45-76); NEUTROPHIL COUNT 3.3 K/uL (1.8-6.4); PLATELET COUNT 200 K/uL (156-360); RBC DIS.WIDTH-CV 13.4 % (11.8-14.6); RED BLOOD COUNT 4.67 M/uL (3.80-5.20); WHITE BLOOD COUNT 5.9 K/uL (4.1-10.2)
[2017-09-16 12:13] LABS: CHLORIDE 108 mEq/L (99-109); POTASSIUM 3.7 mEq/L (3.7-5.4); SODIUM 138 mEq/L (136-147)
[2017-09-16 12:14] LABS: GLUCOSE 113 mg/dL (70-99)
[2017-09-16 12:18] LABS: CREATININE 0.8 mg/dL (0.6-1.3); GFR ESTIMATE (CALCULATED) > 59 mL/min/
[2017-09-16 12:19] LABS: UREA NITROGEN (BUN) 12 mg/dL (9-23)
[2017-09-16] MEDS ORDERED: NORVASC5 MG PO (13:13)
[2017-09-16] MEDS ORDERED: NITROSTAT0.4 MG SL (13:17)
[2017-09-16] MEDS ORDERED: FLONASE16 G1 BOTH NARES (13:18)
[2017-09-16] MEDS ORDERED: DIPHENHIST25 M3 PO (13:18)
[2017-09-16] MEDS ORDERED: FOLIC ACID1 MG PO (13:19)
[2017-09-16] MEDS ORDERED: CHERATUSSIN AC473 ML PO (13:20)
[2017-09-16 13:26] LABS: COMMENTS - BLOOD GASES A+C+; PCO2 39 mm Hg (35-45); SITE LR; TOTAL RESP RATE 18 resp/min; pH 7.41 (7.35-7.45)
[2017-09-16 13:27] LABS: BASE EXCESS 0.1 mEq/L (-3 to +3); BICARBONATE 24.7 mEq/L (22-26); CARBOXY HGB 1.7 % (0-5); METHEMOGLOBIN 0.9 % (0-1.5); PO2 75 mm Hg (80-100)
[2017-09-16 13:46] VITALS: BP 188/98
[2017-09-16 15:12] VITALS: BP 172/90
[2017-09-16 19:39] VITALS: BP 144/78
[2017-09-17] VITALS (8 sets, daily range): BP systolic 127–167; BP diastolic 64–77
[2017-09-18 04:01] VITALS: BP 122/68
[2017-09-18 06:12] LABS: CHLORIDE 101 MEQ/L (99-109); CREATININE 0.9 MG/DL (0.6-1.3); GFR ESTIMATE (CALCULATED) > 59 mL/min/; SODIUM 133 MEQ/L (136-147); UREA NITROGEN (BUN) 18 mg/dL (9-23)
[2017-09-18 06:19] LABS: GLUCOSE 306 mg/dL (70-99); POTASSIUM 4.8 MEQ/L (3.7-5.4)
[2017-09-18 07:50] VITALS: BP 125/78
[2017-09-18 10:54] VITALS: BP 111/79
[2017-09-18 16:04] VITALS: BP 139/73
[2017-09-18 19:45] VITALS: BP 150/73
[2017-09-19 00:11] VITALS: BP 123/72
[2017-09-19 03:44] VITALS: BP 135/78
[2017-09-19 12:00] VITALS: BP 141/70
[2017-09-19 16:08] VITALS: BP 111/66
[2017-09-19 20:00] VITALS: BP 125/65
[2017-09-20 07:35] VITALS: BP 159/84
[2017-09-20] MEDS ORDERED: PREDNISONE10 MG PO ×2 (11:33)
[2017-09-20] MEDS ORDERED: DELTASONE20 M1 PO (11:33)
[2017-09-20] MEDS ORDERED: CEFTIN500 MG PO (11:33)
[2017-09-20 11:44] VITALS: BP 149/70
== END 2017-09-20 13:04 | disposition home or self-care (01) | DRG 191 ==
LOC: EME 09:44 → EDOF 12:15 → ENRESERV 12:21 → 4SOUTH 13:33 → ENPENDDIS 09-20 11:44 → 4SOUTH 09-20 13:04
PROVIDERS: Emergency Medicine; Family Medicine; Internal Medicine; Physician Assistant
DX: J44.1 Chronic obstructive pulmonary disease with (acute) exacerbation (principal); J20.9 Acute bronchitis, unspecified; J44.0 Chronic obstructive pulmonary disease with (acute) lower respiratory infection; J45.51 Severe persistent asthma with (acute) exacerbation; R11.2 Nausea with vomiting, unspecified; G47.33 Obstructive sleep apnea (adult) (pediatric); Z99.81 Dependence on supplemental oxygen; E11.40 Type 2 diabetes mellitus with diabetic neuropathy, unspecified; I10 Essential (primary) hypertension; E78.5 Hyperlipidemia, unspecified; I25.10 Atherosclerotic heart disease of native coronary artery without angina pectoris; K21.9 Gastro-esophageal reflux disease without esophagitis; K58.0 Irritable bowel syndrome with diarrhea; G89.4 Chronic pain syndrome; G25.81 Restless legs syndrome; M79.7 Fibromyalgia; F10.20 Alcohol dependence, uncomplicated; F32.9 Major depressive disorder, single episode, unspecified; F41.9 Anxiety disorder, unspecified; Z86.711 Personal history of pulmonary embolism; Z86.73 Personal history of transient ischemic attack (TIA), and cerebral infarction without residual deficits; Z87.891 Personal history of nicotine dependence; Z79.01 Long term (current) use of anticoagulants; Z79.51 Long term (current) use of inhaled steroids; Z90.710 Acquired absence of both cervix and uterus; Z96.652 Presence of left artificial knee joint
CPT/HCPCS: 36600; 71045; 80048; 82803; 82948; 85025; 94640; 94640 76; 94667; 94668; 94760; 99202; 99281; 99285; G0378; J0456; J0696; J1815; J2405; J2920; J2930; J7030; J7512; Q0177

== ENCOUNTER 2017-10-17 00:55 | Emergency (ER) | payer OTHER ==
[~2017-10-17] VITALS: Ht 154.9 cm; Wt 90.3 kg
[~2017-10-17 00:55] MED LIST changes: +CEFTIN500 MG PO; +CHERATUSSIN AC473 ML PO; +DIPHENHIST25 M3 PO; +FOLIC ACID1 MG PO
[2017-10-17 02:22] LABS: HEMOGLOBIN 12.5 G/DL (11.9-15.5); MCH 29.6 PG (29.0-34.0); MCHC 34.7 G/DL (30.0-36.0); MCV 85.1 FL (83-99); PLATELET COUNT 200 K/uL (156-360); RBC DIS.WIDTH-CV 13.7 % (11.8-14.6); RBC DIS.WIDTH-SD 42.8 % (39-53); RED BLOOD COUNT 4.23 M/uL (3.80-5.20); WHITE BLOOD COUNT 4.2 K/uL (4.1-10.2)
[2017-10-17 02:42] LABS: CHLORIDE 109 mEq/L (99-109); POTASSIUM 3.5 mEq/L (3.7-5.4); SODIUM 146 mEq/L (136-147)
[2017-10-17 02:44] LABS: GLUCOSE 150 mg/dL (70-99)
[2017-10-17 02:47] LABS: SERUM ETHYL ALCOHOL 71 mg/dL
[2017-10-17 02:48] LABS: CREATININE 0.8 mg/dL (0.6-1.3); GFR ESTIMATE (CALCULATED) > 59 mL/min/
[2017-10-17 02:49] LABS: UREA NITROGEN (BUN) 7 mg/dL (9-23)
[2017-10-17 02:51] LABS: ACETAMINOPHEN (TYLENOL) < 10 mcg/mL (10-30); SALICYLATE < 5.0 MG/DL (15-30)
[2017-10-17 03:57] LABS: APPEARANCE CLOUDY ((CLEAR)); BILIRUBIN NEGATIVE; BLOOD NEGATIVE; COLOR YELLOW ((YELLOW)); GLUCOSE (STRIP) NEGATIVE; KETONES NEGATIVE; LEUKOCYTES SMALL; NITRITE NEGATIVE; PROTEIN (STRIP) 30; SPECIFIC GRAVITY 1.021 (1.000-1.030); UROBILINOGEN 0.2 MG/DL (0.2-1.0)
[2017-10-17 03:59] LABS: BACTERIA NONE SEEN /HPF; EPITHELIAL CELLS 1+ /HPF; MUCUS 4+ /LPF; UCUL ADDED? YES
[2017-10-17 04:07] LABS: AMPHETAMINE NEGATIVE (500 ng/mL); BARBITURATES NEGATIVE (200 ng/mL); BENZODIAZEPINES NEGATIVE (150 ng/mL); BUPRENORPHINE NEGATIVE (10 ng/mL); COCAINE NEGATIVE (150 ng/mL); METHADONE NEGATIVE (200 ng/mL); METHAMPHETAMINE NEGATIVE (500 ng/mL); OPIATES (MORPHINE) NEGATIVE (100 ng/mL); OXYCODONE PRESUMPTIVE POSITIVE (100 ng/mL); PHENCYCLIDINE NEGATIVE (25 ng/mL); PROPOXYPHENE NEGATIVE (300 ng/mL); THC CANNABINOIDS NEGATIVE (50 ng/mL); TRICYCLIC ANTIDEPRESSANTS NEGATIVE (300 ng/mL)
[2017-10-17 05:51] VITALS: BP 173/98
== END 2017-10-17 05:53 | disposition home or self-care (01) ==
LOC: EME 00:55
PROVIDERS: Emergency Medicine
DX: T42.8X2A Poisoning by antiparkinsonism drugs and other central muscle-tone depressants, intentional self-harm, initial encounter (principal); F33.2 Major depressive disorder, recurrent severe without psychotic features; F60.7 Dependent personality disorder; R51 Headache; R11.10 Vomiting, unspecified; F10.99 Alcohol use, unspecified with unspecified alcohol-induced disorder; J44.9 Chronic obstructive pulmonary disease, unspecified; I10 Essential (primary) hypertension; E78.5 Hyperlipidemia, unspecified; E11.9 Type 2 diabetes mellitus without complications; Z86.711 Personal history of pulmonary embolism; Z86.718 Personal history of other venous thrombosis and embolism; Z86.73 Personal history of transient ischemic attack (TIA), and cerebral infarction without residual deficits; Z79.01 Long term (current) use of anticoagulants; Z87.891 Personal history of nicotine dependence; Y90.3 Blood alcohol level of 60-79 mg/100 ml
CPT/HCPCS: 80048; 81003; 85027; 87077; 87086; 87186; 90837; 93005; 99281; 99284; G0480

== ENCOUNTER 2017-10-27 15:19 | Emergency (ER) | payer OTHER ==
[~2017-10-27] VITALS: Ht 154.9 cm; Wt 91.3 kg
[2017-10-27 18:15] VITALS: BP 135/78
== END 2017-10-27 18:20 | disposition home or self-care (01) ==
LOC: EME 15:19
DX: S70.01XA Contusion of right hip, initial encounter (principal); M54.5 Low back pain; W19.XXXA Unspecified fall, initial encounter; M25.78 Osteophyte, vertebrae; I10 Essential (primary) hypertension; J44.9 Chronic obstructive pulmonary disease, unspecified; E11.9 Type 2 diabetes mellitus without complications; E78.5 Hyperlipidemia, unspecified; Z86.711 Personal history of pulmonary embolism; Z86.718 Personal history of other venous thrombosis and embolism; Z86.73 Personal history of transient ischemic attack (TIA), and cerebral infarction without residual deficits; Z79.01 Long term (current) use of anticoagulants
CPT/HCPCS: 72100; 73502; 99281; 99284

== ENCOUNTER 2017-11-06 07:38 | Emergency (ER) | payer OTHER ==
[~2017-11-06] VITALS: Ht 162.6 cm; Wt 98.3 kg
[2017-11-06 08:11] LABS: HEMATOCRIT 39.3 % (36.0-46.0); HEMOGLOBIN 13.5 G/DL (11.9-15.5); MCH 29.2 PG (29.0-34.0); MCHC 34.4 G/DL (30.0-36.0); MCV 84.9 FL (83-99); PLATELET COUNT 206 K/uL (156-360); RBC DIS.WIDTH-CV 13.6 % (11.8-14.6); RBC DIS.WIDTH-SD 42.3 % (39-53); RED BLOOD COUNT 4.63 M/uL (3.80-5.20); WHITE BLOOD COUNT 7.9 K/uL (4.1-10.2)
[2017-11-06 08:25] LABS: CHLORIDE 106 mEq/L (99-109); POTASSIUM 4.9 mEq/L (3.7-5.4); SODIUM 141 mEq/L (136-147)
[2017-11-06 08:26] LABS: GLUCOSE 131 mg/dL (70-99)
[2017-11-06 08:30] LABS: CREATININE 0.9 mg/dL (0.6-1.3); GFR ESTIMATE (CALCULATED) > 59 mL/min/
[2017-11-06 08:31] LABS: UREA NITROGEN (BUN) 19 mg/dL (9-23)
[2017-11-06 08:34] LABS: TROP-I INTERPRETATION NEGATIVE; TROPONIN-I < 0.01 ng/mL (0.0-0.30)
[2017-11-06] MEDS ORDERED: PREDNISONE20 MG PO (09:23)
[2017-11-06] MEDS ORDERED: LEVAQUIN750 MG PO (09:23)
[2017-11-06 09:27] LABS: APPEARANCE SL.HAZY ((CLEAR)); BILIRUBIN NEGATIVE; BLOOD SMALL; GLUCOSE (STRIP) NEGATIVE; KETONES NEGATIVE; LEUKOCYTES LARGE; NITRITE NEGATIVE; PROTEIN (STRIP) NEGATIVE; SPECIFIC GRAVITY 1.009 (1.000-1.030); UROBILINOGEN 0.2 MG/DL (0.2-1.0)
[2017-11-06 09:29] LABS: COLOR PALE STRAW ((YELLOW))
[2017-11-06 09:40] VITALS: BP 159/75
[2017-11-06 09:58] LABS: EPITHELIAL CELLS 1+ /HPF; WHITE BLOOD CELLS 30-40 /HPF (0-5)
[2017-11-06 09:59] LABS: BACTERIA 1+ /HPF; MUCUS NONE SEEN /LPF; UCUL ADDED? YES
== END 2017-11-06 10:16 | disposition home or self-care (01) ==
LOC: EME 07:38
PROVIDERS: Emergency Medicine
DX: J20.9 Acute bronchitis, unspecified (principal); J44.0 Chronic obstructive pulmonary disease with (acute) lower respiratory infection; E11.9 Type 2 diabetes mellitus without complications; I10 Essential (primary) hypertension; E78.5 Hyperlipidemia, unspecified; K21.9 Gastro-esophageal reflux disease without esophagitis; M79.7 Fibromyalgia; I25.10 Atherosclerotic heart disease of native coronary artery without angina pectoris; K58.9 Irritable bowel syndrome, unspecified; G47.33 Obstructive sleep apnea (adult) (pediatric); F32.9 Major depressive disorder, single episode, unspecified; F31.9 Bipolar disorder, unspecified; F41.9 Anxiety disorder, unspecified; M19.90 Unspecified osteoarthritis, unspecified site; Z87.891 Personal history of nicotine dependence; Z86.73 Personal history of transient ischemic attack (TIA), and cerebral infarction without residual deficits; Z86.718 Personal history of other venous thrombosis and embolism; Z86.711 Personal history of pulmonary embolism; Z79.01 Long term (current) use of anticoagulants; Z90.49 Acquired absence of other specified parts of digestive tract; Z90.710 Acquired absence of both cervix and uterus; Z96.652 Presence of left artificial knee joint; Z88.1 Allergy status to other antibiotic agents; Z88.6 Allergy status to analgesic agent; Z88.7 Allergy status to serum and vaccine; Z88.8 Allergy status to other drugs, medicaments and biological substances
CPT/HCPCS: 71045; 80048; 81003; 84484; 85027; 87086; 93005; 99281; 99285; J2930

== ENCOUNTER 2017-11-18 06:59 | Emergency (ER) | payer OTHER ==
[~2017-11-18] VITALS: Ht 154.9 cm; Wt 91.0 kg
[2017-11-18] MEDS ORDERED: AUGMENTIN875 MG PO (07:52)
[2017-11-18 08:03] VITALS: BP 143/72
== END 2017-11-18 08:04 | disposition home or self-care (01) ==
LOC: EME 06:59
DX: L03.116 Cellulitis of left lower limb (principal); E11.9 Type 2 diabetes mellitus without complications; F32.9 Major depressive disorder, single episode, unspecified; F41.9 Anxiety disorder, unspecified; I10 Essential (primary) hypertension; Z88.6 Allergy status to analgesic agent; Z88.8 Allergy status to other drugs, medicaments and biological substances
CPT/HCPCS: 73630; 99281; 99284